=== PATIENT | male | born 1985 | race Caucasian/White ===

== ENCOUNTER 2016-12-17 16:41 | Inpatient (IN) | payer OTHER ==
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
[2016-12-17] MEDS ORDERED: HALOPERIDOL LACT 5 MG/ML INJ ONE (18:23)
[2016-12-17] MEDS ORDERED: LORazepam 2 MG/ML INJ ONE (18:24)
[2016-12-17] MEDS ORDERED: LORazepam 2 MG/ML INJ IM ONE (18:31)
[2016-12-17] MEDS ORDERED: HALOPERIDOL LACT 5 MG/ML INJ IM ONE (18:31)
[2016-12-17 18:57] LABS: % IMMATURE GRANULYOCYTES 0.5 % (0.0-1.1); ABSOLUTE IMMATURE GRANULOCYTES 0.04 10^3/uL (0.00-0.10); ABSOLUTE NRBC COUNT 0.02 10^3/uL (0-0.01); ADD DIFF? NO; ADD MORPH? NO; ADD SCAN? NO; ATYPICAL LYMPHOCYTE FLAG 30 (0-99); FRAGMENT RBC FLAG 0 (0-99); LEFT SHIFT FLG 0 (0-99); LIPEMIA HEMOLYSIS FLAG 90 (0-99); MEAN CELL HEMOGLOBIN 31.6 pg (27.9-34.1); MEAN CELL HEMOGLOBIN CONCENTR. 35.6 g/dL (32.4-36.7); MEAN CELL VOLUME 88.8 fL (81.5-99.8); MEAN PLATELET VOLUME 9.8 fL (8.7-11.7); NRBC-AUTO% 0.2 % (0.0-0.2); PLATELET CLUMPS FLAG 10 (0-99); PLATELET COUNT 282 10^3/uL (150-400); RED BLOOD CELL COUNT 5.07 10^6/uL (4.40-6.38); RED CELL DISTRIBUTION WIDTH 14.1 % (11.5-15.2)
[2016-12-17 19:10] LABS: ANION GAP 19 mEq/L (8-16); CARBON DIOXIDE 18 mEq/l (22-31); CHLORIDE 106 mEq/L (97-110); CREATININE 0.9 mg/dL (0.7-1.3); ETHANOL SERUM < 10 mg/dL (0-10); GLOMERULAR FILTRATION RATE > 60; GLUCOSE 65 mg/dL (70-100); POTASSIUM 3.4 mEq/L (3.5-5.2); SALICYLATE < 1.0 mg/dL (2.0-20.0); SODIUM 143 mEq/L (134-144)
[2016-12-17] MEDS ORDERED: LORazepam 1 MG TAB PO ONE (19:55)
[2016-12-17] MEDS ORDERED: LORazepam 1 MG TAB ONE (20:41)
[2016-12-17] MEDS ORDERED: LORazepam 0.5 MG TAB PO PRN (22:35)
[2016-12-17] MEDS ORDERED: MAG HYDROX/AL HYDROX/SIMETH 30 ML UDCUP PO PRN (22:35)
[2016-12-17] MEDS ORDERED: MAGNESIUM HYDROXIDE 30 ML UDCUP PO PRN (22:35)
[2016-12-18] MEDS: LORazepam 1 MG TAB PO SCH ×2 (16:31→20:13)
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
[2016-12-18] MEDS: ARIPiprazole 5 MG TAB PO SCH (20:13)
[2016-12-18] MEDS: ACETAMINOPHEN 325 MG TAB PO PRN (20:13)
[2016-12-19] MEDS: ACETAMINOPHEN 325 MG TAB PO PRN ×2 (01:03→13:33)
[2016-12-19] MEDS: OLANZapine DISINTEGR 10 MG TAB PO PRN ×2 (01:04→13:33)
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
[2016-12-19] MEDS: LORazepam 1 MG TAB PO SCH ×3 (09:44→22:13)
[2016-12-19] MEDS: ARIPiprazole 5 MG TAB PO SCH ×2 (09:44→22:13)
[2016-12-19] MEDS: NICOTINE POLACRILEX 2 MG GUM B PRN ×3 (13:33→22:40)
--- NOTE | 2016-12-19 15:20 | SOAPPROG ---
SOAP Progress Note Assessment/Plan: Assessment: Plan: 12/19/16 14:00 DAY 2 30' UPDATE/EXAM: Nursing reports pt has remained in behavioral control, slept well, is c/w cares and meds; calmer and with resolving PI as observed/ on direct exam pt presents as mildly anxious, cooperative, conversant; thought pr ocess is very concrete, impoverished a d c/w compromised intellectual functioning to mild MR level; circumscribed IOR and PI residual; responsive to reintegrative support. ASSESSMENT/PLAN: early phase evidence that pt is recompensationg and cooperative in engaging Care Plan/ no change in current meds or management plan Objective: Vital Signs Temp Pulse Resp BP Pulse Ox 36.9 C 81 14 127/74 H 94 12/19/16 05:22 12/19/16 05:22 12/19/16 05:22 12/19/16 05:22 12/19/16 05:22 Microbiology 12/19/16 02:00 Gastrointestinal Tract Panel (PCR) - Final Stool Adenovirus Plesiomonas Shigelloides E.coli Enteropathogenic(Epec) ICD10 Worksheet Patient Problems: Problems Problem Status Onset Acute psychosis Acute
--- NOTE | 2016-12-20 06:41 | SOAPPROG ---
SOAP Progress Note Assessment/Plan: Assessment: Plan: 12/19/16 14:00 DAY 2 30' UPDATE/EXAM: Nursing reports pt has remained in behavioral control, slept well, is c/w cares and meds; calmer and with resolving PI as observed/ on direct exam pt presents as mildly anxious, cooperative, conversant; thought process is very concrete, impoverished as c/w compromised intellectual functioning to mild MR level; circumscribed IOR and PI residual; responsive to reintegrative support. ASSESSMENT/PLAN: early phase evidence that pt is recompensating and cooperative in engaging Care Plan/ no change in current meds or management plan 12/20/16 DAY 3 30' UPDATE/EXAM: Objective: Vital Signs Temp Pulse Resp BP Pulse Ox 36.9 C 72 16 110/64 96 12/20/16 06:00 12/20/16 06:00 12/20/16 06:00 12/20/16 06:00 12/20/16 06:00 Microbiology 12/19/16 02:00 Gastrointestinal Tract Panel (PCR) - Final Stool Adenovirus Plesiomonas Shigelloides E.coli Enteropathogenic(Epec) ICD10 Worksheet Patient Problems: Problems Problem Status Onset Acute psychosis Acute
[2016-12-20] MEDS: NICOTINE POLACRILEX 2 MG GUM B PRN ×2 (08:54→19:53)
[2016-12-20] MEDS: LORazepam 1 MG TAB PO SCH (08:54)
[2016-12-20] MEDS: ARIPiprazole 5 MG TAB PO SCH (08:54)
--- NOTE | 2016-12-20 15:25 | SOAPPROG ---
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 ASSESSMENT/PLAN: early phase evidence that pt is recompensating and cooperative in engaging Care Plan/ no change in current meds or management plan 12/20/16 13:30 DAY ' UPDATE/EXAM: Nursing reports slept 11 hr, observed as drowsy and more time in bed; PI and POS noted on MSE by nursing and CC earlier today/ on direct exam pt is drowsy and in bed; thought process unchanged with residual PI and impoverishment; discussed meds changes a/w decrease of Ativan and increase of Abilify which pt is accepting; also again he gives me permissionm to reach [facility] for expanding data base and explore options at DC ASSESSMENT/PLAN: residual psychotic acuity; probable Ativan-induced sedation/ decrease Ativan to 0.5 mg tid and Vistaril prn; increase Abilify to 10 mg bid; Care plan discussed with Nursing - mobilize OOR and promote socialization Objective: Vital Signs Temp Pulse Resp BP Pulse Ox 36.9 C 72 16 110/64 96 12/20/16 06:00 12/20/16 06:00 12/20/16 06:00 12/20/16 06:00 12/20/16 06:00 Microbiology 12/19/16 02:00 Gastrointestinal Tract Panel (PCR) - Final Stool Adenovirus Plesiomonas Shigelloides E.coli Enteropathogenic(Epec) ICD10 Worksheet Patient Problems: Problems Problem Status Onset Acute psychosis Acute
[2016-12-20] MEDS: LORazepam 0.5 MG TAB PO SCH ×2 (16:37→21:53)
[2016-12-20] MEDS: ARIPiprazole 10 MG TAB PO SCH (21:53)
--- NOTE | 2016-12-21 06:28 | SOAPPROG ---
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 ASSESSMENT/PLAN: early phase evidence that pt is recompensating and cooperative in engaging Care Plan/ no change in current meds or management plan 12/20/16 13:30 DAY UPDATE/EXAM: Nursing reports slept 11 hr, observed as drowsy and more time in bed; PI and POS noted on MSE by nursing and CC earlier today/ on direct exam pt is drowsy and in bed; thought process unchanged with residual PI and impoverishment; discussed meds changes a/w decrease of Ativan and increase of Abilify which pt is accepting; also again he gives me permission to reach [facility] for expanding data base and explore options at DC ASSESSMENT/PLAN: residual psychotic acuity; probable Ativan-induced sedation/ decrease Ativan to 0.5 mg tid and Vistaril prn; increase Abilify to 10 mg bid; Care plan discussed with Nursing - mobilize OOR and promote socialization 12/21/16 DAY UPDATE/EXAM: Objective: Vital Signs Temp Pulse Resp BP Pulse Ox 36.9 C 54 L 18 120/69 94 12/21/16 06:00 12/21/16 06:00 12/21/16 06:00 12/21/16 06:00 12/21/16 06:00 ICD10 Worksheet Patient Problems: Problems Problem Status Onset Acute psychosis Acute
[2016-12-21] MEDS: LORazepam 0.5 MG TAB PO SCH ×4 (09:04→21:11)
[2016-12-21] MEDS: ARIPiprazole 10 MG TAB PO SCH ×2 (09:04→21:11)
--- NOTE | 2016-12-21 11:22 | SOAPPROG ---
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 ASSESSMENT/PLAN: early phase evidence that pt is recompensating and cooperative in engaging Care Plan/ no change in current meds or management plan 12/20/16 13:30 DAY UPDATE/EXAM: Nursing reports slept 11 hr, observed as drowsy and more time in bed; PI and POS noted on MSE by nursing and CC earlier today/ on direct exam pt is drowsy and in bed; thought process unchanged with residual PI and impoverishment; discussed meds changes a/w decrease of Ativan and increase of Abilify which pt is accepting; also again he gives me permission to reach [facility] [place] expanding data base and explore options at [place] ASSESSMENT/PLAN: residual psychotic acuity; probable Ativan-induced sedation/ decrease Ativan to 0.5 mg tid and Vistaril prn; increase Abilify to 10 mg bid; Care plan discussed with Nursing - mobilize OOR and promote socialization 12/21/16 DAY UPDATE/EXAM: Nursing rep orts pt slept 10 hours, less drowsy and OOR into milieu this AM; interacting socially with selective pts and attending to self- care, c/w meds and cares; on direct exam evidences residual persecutory delusions about water but less guarded and less pressured speech; again gives permission for me to speak to mother and generally responsive to reintegrative support during session. ASSESSMENT/PLAN: early phase progress in recompensating/ no change in meds or management plan as discussed in Rounds Objective: Vital Signs Temp Pulse Resp BP Pulse Ox 36.9 C 54 L 18 120/69 94 12/21/16 06:00 12/21/16 06:00 12/21/16 06:00 12/21/16 06:00 12/21/16 06:00 ICD10 Worksheet Patient Problems: Problems Problem Status Onset Acute psychosis Acute
[2016-12-21] MEDS: NICOTINE POLACRILEX 2 MG GUM B PRN (16:13)
[2016-12-21] MEDS: ACETAMINOPHEN 325 MG TAB PO PRN (20:22)
--- NOTE | 2016-12-22 06:31 | SOAPPROG ---
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 ASSESSMENT/PLAN: early phase evidence that pt is recompensating and cooperative in engaging Care Plan/ no change in current meds or management plan 12/20/16 13:30 DAY UPDATE/EXAM: Nursing reports slept 11 hr, observed as drowsy and more time in bed; PI and POS noted on MSE by nursing and CC earlier today/ on direct exam pt is drowsy and in bed; thought process unchanged with residual PI and impoverishment; discussed meds changes a/w decrease of Ativan and increase of Abilify which pt is accepting; also again he gives me permission to reach [facility] for expanding data base and explore options at [place] ASSESSMENT/PLAN: residual psychotic acuity; probable Ativan-induced sedation/ decrease Ativan to 0.5 mg tid and Vistaril prn; increase Abilify to 10 mg bid; Care plan discussed with Nursing - mobilize OOR and promote socialization 12/21/16 DAY UPDATE/EXAM: Nursing reports pt slept 10 hours, less drowsy and OOR into milieu this AM; interacting socially with selective pts and attending to self-care, c/ w meds and cares; on direct exam evidences residual persecutory delusions about water but less guarded and less pressured speech; again gives permission for me to speak to mother and generally responsive to reintegrative support during session. ASSESSMENT/PLAN: early phase progress in recompensating/ no change in meds or management plan as discussed in Rounds 12/22/16 DAY UPDATE/EXAM: Objective: Vital Signs Temp Pulse Resp BP Pulse Ox 36.9 C 54 L 18 120/69 94 12/21/16 06:00 12/21/16 06:00 12/21/16 06:00 12/21/16 06:00 12/21/16 06:00 ICD10 Worksheet Patient Problems: Problems Problem Status Onset Acute psychosis Acute
[2016-12-22] MEDS: LORazepam 0.5 MG TAB PO SCH ×3 (08:10→20:47)
[2016-12-22] MEDS: ARIPiprazole 10 MG TAB PO SCH ×2 (08:11→17:18)
[2016-12-22] MEDS: NICOTINE POLACRILEX 2 MG GUM B PRN ×2 (11:26→19:07)
--- NOTE | 2016-12-22 11:41 | SOAPPROG ---
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 ASSESSMENT/PLAN: early phase evidence that pt is recompensating and cooperative in engaging Care Plan/ no change in current meds or management plan 12/20/16 13:30 DAY ' UPDATE/EXAM: Nursing reports slept 11 hr, observed as drowsy and more time in bed; PI and POS noted on MSE by nursing and CC earlier today/ on direct exam pt is drowsy and in bed; thought process unchanged with residual PI and impoverishment; discussed meds changes a/w decrease of Ativan and increase of Abilify which pt is accepting; also again he gives me permission to reach [facility] for expanding data base and explore options at [place] ASSESSMENT/PLAN: residual psychotic acuity; probable Ativan-induced sedation/ decrease Ativan to 0.5 mg tid and Vistaril prn; increase Abilify to 10 mg bid; Care plan discussed with Nursing - mobilize OOR and promote socialization 12/21/16 DAY UPDATE/EXAM: Nursing reports pt slept 10 hours, less drowsy and OOR into milieu this AM; interacting socially with selective pts and attending to self-care, c/ w meds and cares; on direct exam evidences residual persecutory delusions about water but less guarded and less pressured speech; again gives permission for me to speak to mother and generally responsive to reintegrative support during session. ASSESSMENT/PLAN: early phase progress in recompensating/ no change in meds or management plan as discussed in Rounds 12/22/16 11:30 DAY UPDATE/EXAM: Nursing reorts pt continues to sleep well, c/w cares and meds, gradually more visible in milieu and attending selective groups/ on direct exam pt evidences improving signs a/w less POS and slowed mentation, improving reality-testing capacity, improving capacity for conversant mode; residual manic elements remains as does IOR and PI. INTAKE/MOC: she reports that mood instability with preponderant manic episodes began in childhood and have continued to the present; assessed as disabled at age 18 with disabilities defined as GM epilepsy, mild mental retardation/ learning disabled, and Autistic Spectrum Disorder - no mention of primary Mood Disorder. In recent years and particularly over the last year [facility] has seen psychotic sx emerge including PI, persecutory delusions, AH/VH; psychotic crises leading to this admission is the most acutely psychotic MOC has seen her son. She states she and pt's father want him to return to [place], again live with family, and engage treatment in the community. ASSESSMENT/PLAN: residual manic/psychotic elements on exam which are improving; hx suggests SAD - Bipolar Type a/w other diagnoses as referenced/ no change in current meds or management as d/w Nursing in Rounds Objective: Vital Signs Temp Pulse Resp BP Pulse Ox 36.6 C 60 16 128/80 H 94 12/22/16 06:00 12/22/16 06:00 12/22/16 06:00 12/22/16 06:00 12/22/16 06:00 ICD10 Worksheet Patient Problems: Problems Problem Status Onset Acute psychosis Acute
[2016-12-23] MEDS: NICOTINE POLACRILEX 2 MG GUM B PRN ×2 (08:10→10:58)
[2016-12-23] MEDS: LORazepam 0.5 MG TAB PO SCH ×3 (08:55→20:13)
[2016-12-23] MEDS: ARIPiprazole 10 MG TAB PO SCH ×2 (08:55→17:16)
--- NOTE | 2016-12-23 13:02 | SOAPPROG ---
SOAP Progress Note Assessment/Plan: Assessment: 31yo CM with likely Schizoaffective d/o, bipolar type, also hx mild MR, sz d/o none in 5yr, Autism spectrum d/o 12/23/16 12:53 pt slept 6hr. no acute issues. continues with grandiose and paranoid thoughts but overall more organized in conversation, [place] [facility] [place] On interview, pt talked briefly about leaving [place] for [place] recently, digressed into snowboarding at age 6 and getting snow in his boots and motion sickness unless driving. [place] he could [place]amorano for gold out here, and was hoping to get $20/ day this way, living in [facility]. Then states "I want to go to [place]...I wanted to find land and get [employer] rights, then build a place, and find a dog or a mule to keep me company..." Unable to state how ended up in psychiatric hosp, "maybe because I was praying in the parking lot". Denies med s/e, altho concerned Abilify will give him psychosis, since it's an antipsychotic and he doesn't believe he is psychotic. "that's what I heard". Agreed to continue with treatment as planned, however. Likes prn ativan, although states xanax helped in the past too. MSE: cooperative, engaging, nml speech rate/vol, nml eye contact, mood "pretty good", affect full, thoughts disorganized and not reality-based, but denied AH/ VH or any SI/HI. insight poor, jdgmt impaired. PLAN: cont current meds, on STC. Family may come from [place] to take pt home. Objective: Vital Signs Temp Pulse Resp BP Pulse Ox 36.5 C 71 14 102/66 96 12/23/16 06:20 12/23/16 06:20 12/23/16 06:20 12/23/16 06:20 12/23/16 06:20 - Time Spent With Patient Time Spent With Patient: 25min - Pending Discharge Pending Discharge Within 24 Hours: No Pending Discharge Within 48 Hours: No ICD10 Worksheet Patient Problems: Problems Problem Status Onset Acute psychosis Acute
[2016-12-23] MEDS: ACETAMINOPHEN 325 MG TAB PO PRN (20:13)
[2016-12-24] MEDS: ZOLPIDEM TARTRATE 5 MG TAB PO PRN ×2 (03:19→20:40)
[2016-12-24] MEDS: ARIPiprazole 10 MG TAB PO SCH ×2 (08:22→15:44)
[2016-12-24] MEDS: LORazepam 0.5 MG TAB PO SCH ×3 (08:22→20:40)
[2016-12-24] MEDS: NICOTINE POLACRILEX 2 MG GUM B PRN ×4 (12:59→20:40)
[2016-12-24] MEDS: OLANZapine DISINTEGR 10 MG TAB PO PRN (17:34)
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
[2016-12-25] MEDS: NICOTINE POLACRILEX 2 MG GUM B PRN ×2 (06:03→09:12)
[2016-12-25] MEDS: ALBUTEROL 60 PUFFS/8 GM MDI IH PRN (06:24)
[2016-12-25] MEDS: ARIPiprazole 10 MG TAB PO SCH ×2 (09:10→16:49)
[2016-12-25] MEDS: LORazepam 0.5 MG TAB PO SCH ×3 (09:10→22:08)
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
[2016-12-25] MEDS ORDERED: ARIPiprazole 10 MG TAB PO SCH (17:00)
[2016-12-26] MEDS ORDERED: ARIPiprazole 10 MG TAB PO SCH (09:00)
[2016-12-26] MEDS: LORazepam 0.5 MG TAB PO SCH ×3 (10:08→21:03)
--- NOTE | 2016-12-26 11:51 | SOAPPROG ---
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 ASSESSMENT/PLAN: early phase evidence that pt is recompensating and cooperative in engaging Care Plan/ no change in current meds or management plan 12/20/16 13:30 DAY ' UPDATE/EXAM: Nursing reports slept 11 hr, observed as drowsy and more time in bed; PI and POS noted on MSE by nursing and CC earlier today/ on direct exam pt is drowsy and in bed; thought process unchanged with residual PI and impoverishment; discussed meds changes a/w decrease of Ativan and increase of Abilify which pt is accepting; also again he gives me permission to reach [facility] [place] and explore options at [place] ASSESSMENT/PLAN: residual psychotic acuity; probable Ativan-induced sedation/ decrease Ativan to 0.5 mg tid and Vistaril prn; increase Abilify to 10 mg bid; Care plan discussed with Nursing - mobilize OOR and promote socialization 12/21/16 DAY UPDATE/EXAM: Nursing reports pt slept 10 hours, less drowsy and OOR into milieu this AM; interacting socially with selective pts and attending to self-care, c/ w meds and cares; on direct exam evidences residual persecutory delusions about water but less guarded and less pressured speech; again gives permission for me to speak to mother and generally responsive to reintegrative support during session. ASSESSMENT/PLAN: early phase progress in recompensating/ no change in meds or management plan as discussed in Rounds 12/22/16 11:30 DAY UPDATE/EXAM: Nursing reorts pt continues to sleep well, c/w cares and meds, gradually more visible in milieu and attending selective groups/ on direct exam pt evidences improving signs a/w less POS and slowed mentation, improving reality-testing capacity, improving capacity for conversant mode; residual manic elements remains as does IOR and PI. INTAKE/MOC: she reports that mood instability with preponderant manic episodes began in childhood and have continued to the present; assessed as disabled at age 18 with disabilities defined as GM epilepsy, mild mental retardation/ learning disabled, and Autistic Spectrum Disorder - no mention of primary Mood Disorder. In recent years and particularly over the last year [facility] [place] psychotic sx emerge including PI, persecutory delusions, AH/VH; psychotic crises leading to this admission is the most acutely psychotic MOC has seen her son. She states she and pt's father want him to return to [place], again live with family, and engage treatment in the community. ASSESSMENT/PLAN: residual manic/psychotic elements on exam which are improving; hx suggests SAD - Bipolar Type a/w other diagnoses as referenced/ no change in current meds or management as d/w Nursing in Rounds 12/26/16 11:36 DAY ' UPDATE/EXAM: Nursing reports over past 3 days pt has continued to evidence residual psychotic/manic elements with extremely disjointed thought process at times; has refused several doses of Abilify as he's c/o "restless legs which also feel like lead"; this AM pt states he took an Ativan and Abilify tablet he' d cheeked and saved in the interest of checking out his response to see if his legs still bothered him after he'd agreed to take a depot shot Abillify in speaking with me earlier; on f/u contact pt described the apparent side effect of akathisia he'd felt with previous compliance with Abilify; he agreed to try Cogentin 1 mg bid, continue the Abilify 10 mg bid and hold off on the depot injection of Abilify for 48 hours to assess his tolerance for the Abilify; He also agreed to take a loading trial of Depakote which he now says he's taken remotely which worked "to make me mellow" but was also sedating ASSESSMENT/PLAN: residual psychotic/manic sx but improved partially on Abilify currently dosed at 100 mg bid; akathisia side-effect/ will prescribe Cogentin 1 mg bid and begin Depakote ER 250 mg bid and observe mental status; continue current CP as d/w Nursing in Rounds; monitor meds compliance Objective: Vital Signs Temp Pulse Resp BP Pulse Ox 36.3 C 88 16 131/81 H 97 12/26/16 06:00 12/26/16 11:00 12/26/16 11:00 12/26/16 11:00 12/26/16 11:00 ICD10 Worksheet Patient Problems: Problems Problem Status Onset Acute psychosis Acute
[2016-12-26] MEDS: ARIPiprazole 10 MG TAB PO SCH ×2 (12:15→18:41)
[2016-12-26] MEDS: BENZTROPINE MESYLATE 1 MG TAB PO SCH ×2 (13:47→21:02)
[2016-12-26] MEDS: DIVALPROEX ER 250 MG TAB PO SCH (21:02)
--- NOTE | 2016-12-27 06:32 | SOAPPROG ---
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 ASSESSMENT/PLAN: early phase evidence that pt is recompensating and cooperative in engaging Care Plan/ no change in current meds or management plan 12/20/16 13:30 DAY ' UPDATE/EXAM: Nursing reports slept 11 hr, observed as drowsy and more time in bed; PI and POS noted on MSE by nursing and CC earlier today/ on direct exam pt is drowsy and in bed; thought process unchanged with residual PI and impoverishment; discussed meds changes a/w decrease of Ativan and increase of Abilify which pt is accepting; also again he gives me permission to reach [facility] for expanding data base and explore options at [place] ASSESSMENT/PLAN: residual psychotic acuity; probable Ativan-induced sedation/ decrease Ativan to 0.5 mg tid and Vistaril prn; increase Abilify to 10 mg bid; Care plan discussed with Nursing - mobilize OOR and promote socialization 12/21/16 DAY UPDATE/EXAM: Nursing reports pt slept 10 hours, less drowsy and OOR into milieu this AM; interacting socially with selective pts and attending to self-care, c/ w meds and cares; on direct exam evidences residual persecutory delusions about water but less guarded and less pressured speech; again gives permission for me to speak to mother and generally responsive to reintegrative support during session. ASSESSMENT/PLAN: early phase progress in recompensating/ no change in meds or management plan as discussed in Rounds 12/22/16 11:30 DAY UPDATE/EXAM: Nursing reorts pt continues to sleep well, c/w cares and meds, gradually more visible in milieu and attending selective groups/ on direct exam pt evidences improving signs a/w less POS and slowed mentation, improving reality-testing capacity, improving capacity for conversant mode; residual manic elements remains as does IOR and PI. INTAKE/MOC: she reports that mood instability with preponderant manic episodes began in childhood and have continued to the present; assessed as disabled at age 18 with disabilities defined as GM epilepsy, mild mental retardation/ learning disabled, and Autistic Spectrum Disorder - no mention of primary Mood Disorder. In recent years and particularly over the last year [facility] has seen psychotic sx emerge including PI, persecutory delusions, AH/VH; psychotic crises leading to this admission is the most acutely psychotic MOC has seen her son. She states she and pt's father want him to return to [place], again live with family, and engage treatment in the community. ASSESSMENT/PLAN: residual manic/psychotic elements on exam which are improving; hx suggests SAD - Bipolar Type a/w other diagnoses as referenced/ no change in current meds or management as d/w Nursing in Rounds 12/26/16 11:36 DAY ' UPDATE/EXAM: Nursing reports over past 3 days pt has continued to evidence residual psychotic/manic elements with extremely disjointed thought process at times; has refused several doses of Abilify as he's c/o "restless legs which also feel like lead"; this AM pt states he took an Ativan and Abilify tablet he' d cheeked and saved in the interest of checking out his response to see if his legs still bothered him after he'd agreed to take a depot shot Abillify in speaking with me earlier; on f/u contact pt described the apparent side effect of akathisia he'd felt with previous compliance with Abilify; he agreed to try Cogentin 1 mg bid, continue the Abilify 10 mg bid and hold off on the depot injection of Abilify for 48 hours to assess his tolerance for the Abilify; He also agreed to take a loading trial of Depakote which he now says he's taken remotely which worked "to make me mellow" but was also sedating. ASSESSMENT/PLAN: residual psychotic/manic sx but improved partially on Abilify currently dosed at 10 mg bid; akathisia side-effect/ will prescribe Cogentin 1 mg bid and begin Depakote ER 250 mg bid and observe mental status; continue current CP as d/w Nursing in Rounds; monitor meds compliance 12/27/16 DAY ' UPDATE/EXAM: Objective: Vital Signs Temp Pulse Resp BP Pulse Ox 36.3 C 96 16 125/85 H 97 12/27/16 05:54 12/27/16 05:54 12/27/16 05:54 12/27/16 05:54 12/27/16 05:54 ICD10 Worksheet Patient Problems: Problems Problem Status Onset Acute psychosis Acute
[2016-12-27] MEDS: OLANZapine DISINTEGR 10 MG TAB PO PRN ×2 (06:37→13:22)
[2016-12-27] MEDS: DIVALPROEX ER 250 MG TAB PO SCH ×2 (08:19→21:25)
[2016-12-27] MEDS: BENZTROPINE MESYLATE 1 MG TAB PO SCH ×2 (08:20→21:25)
[2016-12-27] MEDS: NICOTINE POLACRILEX 2 MG GUM B PRN ×4 (08:20→23:04)
[2016-12-27] MEDS: LORazepam 0.5 MG TAB PO SCH ×4 (08:41→21:59)
[2016-12-27] MEDS: ARIPiprazole 10 MG TAB PO SCH ×2 (11:09→13:23)
[2016-12-27] MEDS ORDERED: RISPERIDONE 1 MG ODT TAB ONE (14:09)
--- NOTE | 2016-12-27 14:33 | SOAPPROG ---
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 ASSESSMENT/PLAN: early phase evidence that pt is recompensating and cooperative in engaging Care Plan/ no change in current meds or management plan 12/20/16 13:30 DAY ' UPDATE/EXAM: Nursing reports slept 11 hr, observed as drowsy and more time in bed; PI and POS noted on MSE by nursing and CC earlier today/ on direct exam pt is drowsy and in bed; thought process unchanged with residual PI and impoverishment; discussed meds changes a/w decrease of Ativan and increase of Abilify which pt is accepting; also again he gives me permission to reach [facility] [place] and explore options at [place] ASSESSMENT/PLAN: residual psychotic acuity; probable Ativan-induced sedation/ decrease Ativan to 0.5 mg tid and Vistaril prn; increase Abilify to 10 mg bid; Care plan discussed with Nursing - mobilize OOR and promote socialization 12/21/16 DAY UPDATE/EXAM: Nursing reports pt slept 10 hours, less drowsy and OOR into milieu this AM; interacting socially with selective pts and attending to self-care, c/ w meds and cares; on direct exam evidences residual persecutory delusions about water but less guarded and less pressured speech; again gives permission for me to speak to mother and generally responsive to reintegrative support during session. ASSESSMENT/PLAN: early phase progress in recompensating/ no change in meds or management plan as discussed in Rounds 12/22/16 11:30 DAY UPDATE/EXAM: Nursing reorts pt continues to sleep well, c/w cares and meds, gradually more visible in milieu and attending selective groups/ on direct exam pt evidences improving signs a/w less POS and slowed mentation, improving reality-testing capacity, improving capacity for conversant mode; residual manic elements remains as does IOR and PI. INTAKE/MOC: she reports that mood instability with preponderant manic episodes began in childhood and have continued to the present; assessed as disabled at age 18 with disabilities defined as GM epilepsy, mild mental retardation/ learning disabled, and Autistic Spectrum Disorder - no mention of primary Mood Disorder. In recent years and particularly over the last year [facility] [place] seen psychotic sx emerge including PI, persecutory delusions, AH/VH; psychotic crises leading to this admission is the most acutely psychotic MOC has seen her son. She states she and pt's father want him to return to [place], again live with family, and engage treatment in the community. ASSESSMENT/PLAN: residual manic/psychotic elements on exam which are improving; hx suggests SAD - Bipolar Type a/w other diagnoses as referenced/ no change in current meds or management as d/w Nursing in Rounds 12/26/16 11:36 DAY ' UPDATE/EXAM: Nursing reports over past 3 days pt has continued to evidence residual psychotic/manic elements with extremely disjointed thought process at times; has refused several doses of Abilify as he's c/o "restless legs which also feel like lead"; this AM pt states he took an Ativan and Abilify tablet he' d cheeked and saved in the interest of checking out his response to see if his legs still bothered him after he'd agreed to take a depot shot Abillify in speaking with me earlier; on f/u contact pt described the apparent side effect of akathisia he'd felt with previous compliance with Abilify; he agreed to try Cogentin 1 mg bid, continue the Abilify 10 mg bid and hold off on the depot injection of Abilify for 48 hours to assess his tolerance for the Abilify; He also agreed to take a loading trial of Depakote which he now says he's taken remotely which worked "to make me mellow" but was also sedating. ASSESSMENT/PLAN: residual psychotic/manic sx but improved partially on Abilify currently dosed at 10 mg bid; akathisia side-effect/ will prescribe Cogentin 1 mg bid and begin Depakote ER 250 mg bid and observe mental status; continue current CP as d/w Nursing in Rounds; monitor meds compliance 12/27/16 14:20 DAY ' UPDATE/EXAM: Nursing reports pt has been more regressed in last 24 hours, intermittently agitated, cheeking meds; continuing to complain about Abilify causing LE side-effects; this aM he has tried to elope X 1 and ripped a railing off a bannister on the unit but clamed with limits applied/ on direct exam pt engaged and cooperated after limits again applied by me in session about need for control and compliance with cares and meds; he is unable to understand the trial of Abillify and Cogentin so I decided to Dc Abilify and begin Risperdal M TABS 3 mg bid which pt agrees to take with first dosing while still in my office ; other meds unchanged; pt + about speaker phone meeting with [facility] tomorrow. ASSESSMENT/PLAN: increased agitation, regressed behaviors, residual psychotic/ manic acuity a/w noncompliance with meds/ begin trial of Risperdal M tabs 3 mg bid, continue other meds as ordered, care plan strategies d/w Nursing post session Objective: Vital Signs Temp Pulse Resp BP Pulse Ox 36.3 C 96 16 125/85 H 97 12/27/16 05:54 12/27/16 05:54 12/27/16 05:54 12/27/16 05:54 12/27/16 05:54 ICD10 Worksheet Patient Problems: Problems Problem Status Onset Acute psychosis Acute
[2016-12-27] MEDS: NICOTINE 21 MG/24 HR PATCH TD SCH (14:44)
[2016-12-27] MEDS: RISPERIDONE 1 MG ODT TAB SL SCH ×2 (14:46→21:25)
[2016-12-27] MEDS: ALBUTEROL 60 PUFFS/8 GM MDI IH PRN (18:23)
[2016-12-28] MEDS: NICOTINE POLACRILEX 2 MG GUM B PRN ×3 (00:15→22:35)
[2016-12-28] MEDS: ZOLPIDEM TARTRATE 5 MG TAB PO PRN ×2 (01:27→22:42)
[2016-12-28] MEDS: hydrOXYzine HCL 50 MG TAB PO PRN (06:39)
[2016-12-28] MEDS: RISPERIDONE 1 MG ODT TAB SL SCH ×2 (08:19→20:33)
[2016-12-28] MEDS: DIVALPROEX ER 250 MG TAB PO SCH ×2 (08:20→20:33)
[2016-12-28] MEDS: LORazepam 0.5 MG TAB PO SCH ×3 (08:21→20:33)
[2016-12-28] MEDS: BENZTROPINE MESYLATE 1 MG TAB PO SCH ×2 (08:22→20:33)
[2016-12-28] MEDS: NICOTINE 21 MG/24 HR PATCH TD SCH (08:23)
[2016-12-28] MEDS: OLANZapine DISINTEGR 10 MG TAB PO PRN ×3 (08:31→20:37)
--- NOTE | 2016-12-28 08:52 | SOAPPROG ---
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 ASSESSMENT/PLAN: early phase evidence that pt is recompensating and cooperative in engaging Care Plan/ no change in current meds or management plan 12/20/16 13:30 DAY ' UPDATE/EXAM: Nursing reports slept 11 hr, observed as drowsy and more time in bed; PI and POS noted on MSE by nursing and CC earlier today/ on direct exam pt is drowsy and in bed; thought process unchanged with residual PI and impoverishment; discussed meds changes a/w decrease of Ativan and increase of Abilify which pt is accepting; also again he gives me permission to reach [facility] [place] and explore options at [place] ASSESSMENT/PLAN: residual psychotic acuity; probable Ativan-induced sedation/ decrease Ativan to 0.5 mg tid and Vistaril prn; increase Abilify to 10 mg bid; Care plan discussed with Nursing - mobilize OOR and promote socialization 12/21/16 DAY UPDATE/EXAM: Nursing reports pt slept 10 hours, less drowsy and OOR into milieu this AM; interacting socially with selective pts and attending to self-care, c/ w meds and cares; on direct exam evidences residual persecutory delusions about water but less guarded and less pressured speech; again gives permission for me to speak to mother and generally responsive to reintegrative support during session. ASSESSMENT/PLAN: early phase progress in recompensating/ no change in meds or management plan as discussed in Rounds 12/22/16 11:30 DAY UPDATE/EXAM: Nursing reorts pt continues to sleep well, c/w cares and meds, gradually more visible in milieu and attending selective groups/ on direct exam pt evidences improving signs a/w less POS and slowed mentation, improving reality-testing capacity, improving capacity for conversant mode; residual manic elements remains as does IOR and PI. INTAKE/MOC: she reports that mood instability with preponderant manic episodes began in childhood and have continued to the present; assessed as disabled at age 18 with disabilities defined as GM epilepsy, mild mental retardation/ learning disabled, and Autistic Spectrum Disorder - no mention of primary Mood Disorder. In recent years and particularly over the last year [facility] [place] seen psychotic sx emerge including PI, persecutory delusions, AH/VH; psychotic crises leading to this admission is the most acutely psychotic MOC has seen her son. She states she and pt's father want him to return to [place], again live with family, and engage treatment in the community. ASSESSMENT/PLAN: residual manic/psychotic elements on exam which are improving; hx suggests SAD - Bipolar Type a/w other diagnoses as referenced/ no change in current meds or management as d/w Nursing in Rounds 12/26/16 11:36 DAY ' UPDATE/EXAM: Nursing reports over past 3 days pt has continued to evidence residual psychotic/manic elements with extremely disjointed thought process at times; has refused several doses of Abilify as he's c/o "restless legs which also feel like lead"; this AM pt states he took an Ativan and Abilify tablet he' d cheeked and saved in the interest of checking out his response to see if his legs still bothered him after he'd agreed to take a depot shot Abillify in speaking with me earlier; on f/u contact pt described the apparent side effect of akathisia he'd felt with previous compliance with Abilify; he agreed to try Cogentin 1 mg bid, continue the Abilify 10 mg bid and hold off on the depot injection of Abilify for 48 hours to assess his tolerance for the Abilify; He also agreed to take a loading trial of Depakote which he now says he's taken remotely which worked "to make me mellow" but was also sedating. ASSESSMENT/PLAN: residual psychotic/manic sx but improved partially on Abilify currently dosed at 10 mg bid; akathisia side-effect/ will prescribe Cogentin 1 mg bid and begin Depakote ER 250 mg bid and observe mental status; continue current CP as d/w Nursing in Rounds; monitor meds compliance 12/27/16 14:20 DAY UPDATE/EXAM: Nursing reports pt has been more regressed in last 24 hours, intermittently agitated, cheeking meds; continuing to complain about Abilify causing LE side-effects; this aM he has tried to elope X 1 and ripped a railing off a bannister on the unit but clamed with limits applied/ on direct exam pt engaged and cooperated after limits again applied by me in session about need for control and compliance with cares and meds; he is unable to understand the trial of Abillify and Cogentin so I decided to Dc Abilify and begin Risperdal M TABS 3 mg bid which pt agrees to take with first dosing while still in my office ; other meds unchanged; pt + about speaker phone meeting with [facility] tomorrow. ASSESSMENT/PLAN: increased agitation, regressed behaviors, residual psychotic/ manic acuity a/w noncompliance with meds/ begin trial of Risperdal M tabs 3 mg bid, continue other meds as ordered, care plan strategies d/w Nursing post session 12/28/16 DAY UPDATE/EXAM: Objective: Vital Signs Temp Pulse Resp BP Pulse Ox 36.3 C 102 H 15 129/90 H 97 12/28/16 06:00 12/28/16 06:00 12/28/16 06:00 12/28/16 06:00 12/28/16 06:00 ICD10 Worksheet Patient Problems: Problems Problem Status Onset Acute psychosis Acute
[2016-12-29] MEDS: LORazepam 0.5 MG TAB PO SCH ×3 (07:59→21:24)
[2016-12-29] MEDS: NICOTINE 21 MG/24 HR PATCH TD SCH (07:59)
[2016-12-29] MEDS: RISPERIDONE 1 MG ODT TAB SL SCH ×2 (07:59→21:24)
[2016-12-29] MEDS: DIVALPROEX ER 250 MG TAB PO SCH ×2 (08:00→21:24)
[2016-12-29] MEDS: BENZTROPINE MESYLATE 1 MG TAB PO SCH ×2 (08:00→21:24)
--- NOTE | 2016-12-29 08:11 | SOAPPROG ---
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 ASSESSMENT/PLAN: early phase evidence that pt is recompensating and cooperative in engaging Care Plan/ no change in current meds or management plan 12/20/16 13:30 DAY ' UPDATE/EXAM: Nursing reports slept 11 hr, observed as drowsy and more time in bed; PI and POS noted on MSE by nursing and CC earlier today/ on direct exam pt is drowsy and in bed; thought process unchanged with residual PI and impoverishment; discussed meds changes a/w decrease of Ativan and increase of Abilify which pt is accepting; also again he gives me permission to reach [facility] for expanding data base and explore options at [place] ASSESSMENT/PLAN: residual psychotic acuity; probable Ativan-induced sedation/ decrease Ativan to 0.5 mg tid and Vistaril prn; increase Abilify to 10 mg bid; Care plan discussed with Nursing - mobilize OOR and promote socialization 12/21/16 DAY UPDATE/EXAM: Nursing reports pt slept 10 hours, less drowsy and OOR into milieu this AM; interacting socially with selective pts and attending to self-care, c/ w meds and cares; on direct exam evidences residual persecutory delusions about water but less guarded and less pressured speech; again gives permission for me to speak to mother and generally responsive to reintegrative support during session. ASSESSMENT/PLAN: early phase progress in recompensating/ no change in meds or management plan as discussed in Rounds 12/22/16 11:30 DAY UPDATE/EXAM: Nursing reorts pt continues to sleep well, c/w cares and meds, gradually more visible in milieu and attending selective groups/ on direct exam pt evidences improving signs a/w less POS and slowed mentation, improving reality-testing capacity, improving capacity for conversant mode; residual manic elements remains as does IOR and PI. INTAKE/MOC: she reports that mood instability with preponderant manic episodes began in childhood and have continued to the present; assessed as disabled at age 18 with disabilities defined as GM epilepsy, mild mental retardation/ learning disabled, and Autistic Spectrum Disorder - no mention of primary Mood Disorder. In recent years and particularly over the last year [facility] has seen psychotic sx emerge including PI, persecutory delusions, AH/VH; psychotic crises leading to this admission is the most acutely psychotic MOC has seen her son. She states she and pt's father want him to return to [place], again live with family, and engage treatment in the community. ASSESSMENT/PLAN: residual manic/psychotic elements on exam which are improving; hx suggests SAD - Bipolar Type a/w other diagnoses as referenced/ no change in current meds or management as d/w Nursing in Rounds 12/26/16 11:36 DAY ' UPDATE/EXAM: Nursing reports over past 3 days pt has continued to evidence residual psychotic/manic elements with extremely disjointed thought process at times; has refused several doses of Abilify as he's c/o "restless legs which also feel like lead"; this AM pt states he took an Ativan and Abilify tablet he' d cheeked and saved in the interest of checking out his response to see if his legs still bothered him after he'd agreed to take a depot shot Abillify in speaking with me earlier; on f/u contact pt described the apparent side effect of akathisia he'd felt with previous compliance with Abilify; he agreed to try Cogentin 1 mg bid, continue the Abilify 10 mg bid and hold off on the depot injection of Abilify for 48 hours to assess his tolerance for the Abilify; He also agreed to take a loading trial of Depakote which he now says he's taken remotely which worked "to make me mellow" but was also sedating. ASSESSMENT/PLAN: residual psychotic/manic sx but improved partially on Abilify currently dosed at 10 mg bid; akathisia side-effect/ will prescribe Cogentin 1 mg bid and begin Depakote ER 250 mg bid and observe mental status; continue current CP as d/w Nursing in Rounds; monitor meds compliance 12/27/16 14:20 DAY ' UPDATE/EXAM: Nursing reports pt has been more regressed in last 24 hours, intermittently agitated, cheeking meds; continuing to complain about Abilify causing LE side-effects; this aM he has tried to elope X 1 and ripped a railing off a bannister on the unit but clamed with limits applied/ on direct exam pt engaged and cooperated after limits again applied by me in session about need for control and compliance with cares and meds; he is unable to understand the trial of Abillify and Cogentin so I decided to Dc Abilify and begin Risperdal M TABS 3 mg bid which pt agrees to take with first dosing while still in my office ; other meds unchanged; pt + about speaker phone meeting with [facility] tomorrow. ASSESSMENT/PLAN: increased agitation, regressed behaviors, residual psychotic/ manic acuity a/w noncompliance with meds/ begin trial of Risperdal M tabs 3 mg bid, continue other meds as ordered, care plan strategies d/w Nursing post session 12/28/16 DAY ' UPDATE/EXAM: Nursing reports pt slept well, obsevably calmer and slightly more organized in thought process; is c/w new regimen a/w Risperdal M tabs 3 mg bid/ on direct exam pt soes present as calmer, with more integrated thought process; still expresses odd ideation which reflects borderline intelligence, includes paranoid elements, is tangential and distractible; is more accepting of DC back to family home in [place]; did well in speaker phone contact with [facility] about parents driving him back to [place] sometime next [place] on sufficient progress. Mother expressed need for pt to engage in psychiatric treatment in the co mmunity to which pt agreed. ASEsSESSMENT/PLAN: less regressed behaviorally andless psycotic residual, more affective stability on exam today/ no change in meds and management plan as d/w Nursing in Rounds Objective: Vital Signs Temp Pulse Resp BP Pulse Ox 36.7 C 88 15 112/66 93 12/29/16 06:23 12/29/16 06:23 12/29/16 06:23 12/29/16 06:23 12/29/16 06:23 ICD10 Worksheet Patient Problems: Problems Problem Status Onset Acute psychosis Acute
--- NOTE | 2016-12-29 08:12 | SOAPPROG ---
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 ASSESSMENT/PLAN: early phase evidence that pt is recompensating and cooperative in engaging Care Plan/ no change in current meds or management plan 12/20/16 13:30 DAY ' UPDATE/EXAM: Nursing reports slept 11 hr, observed as drowsy and more time in bed; PI and POS noted on MSE by nursing and CC earlier today/ on direct exam pt is drowsy and in bed; thought process unchanged with residual PI and impoverishment; discussed meds changes a/w decrease of Ativan and increase of Abilify which pt is accepting; also again he gives me permission to reach [facility] for expanding data base and explore options at [place] ASSESSMENT/PLAN: residual psychotic acuity; probable Ativan-induced sedation/ decrease Ativan to 0.5 mg tid and Vistaril prn; increase Abilify to 10 mg bid; Care plan discussed with Nursing - mobilize OOR and promote socialization 12/21/16 DAY UPDATE/EXAM: Nursing reports pt slept 10 hours, less drowsy and OOR into milieu this AM; interacting socially with selective pts and attending to self-care, c/ w meds and cares; on direct exam evidences residual persecutory delusions about water but less guarded and less pressured speech; again gives permission for me to speak to mother and generally responsive to reintegrative support during session. ASSESSMENT/PLAN: early phase progress in recompensating/ no change in meds or management plan as discussed in Rounds 12/22/16 11:30 DAY UPDATE/EXAM: Nursing reorts pt continues to sleep well, c/w cares and meds, gradually more visible in milieu and attending selective groups/ on direct exam pt evidences improving signs a/w less POS and slowed mentation, improving reality-testing capacity, improving capacity for conversant mode; residual manic elements remains as does IOR and PI. INTAKE/MOC: she reports that mood instability with preponderant manic episodes began in childhood and have continued to the present; assessed as disabled at age 18 with disabilities defined as GM epilepsy, mild mental retardation/ learning disabled, and Autistic Spectrum Disorder - no mention of primary Mood Disorder. In recent years and particularly over the last year [facility] has seen psychotic sx emerge including PI, persecutory delusions, AH/VH; psychotic crises leading to this admission is the most acutely psychotic MOC has seen her son. She states she and pt's father want him to return to [place], again live with family, and engage treatment in the community. ASSESSMENT/PLAN: residual manic/psychotic elements on exam which are improving; hx suggests SAD - Bipolar Type a/w other diagnoses as referenced/ no change in current meds or management as d/w Nursing in Rounds 12/26/16 11:36 DAY ' UPDATE/EXAM: Nursing reports over past 3 days pt has continued to evidence residual psychotic/manic elements with extremely disjointed thought process at times; has refused several doses of Abilify as he's c/o "restless legs which also feel like lead"; this AM pt states he took an Ativan and Abilify tablet he' d cheeked and saved in the interest of checking out his response to see if his legs still bothered him after he'd agreed to take a depot shot Abillify in speaking with me earlier; on f/u contact pt described the apparent side effect of akathisia he'd felt with previous compliance with Abilify; he agreed to try Cogentin 1 mg bid, continue the Abilify 10 mg bid and hold off on the depot injection of Abilify for 48 hours to assess his tolerance for the Abilify; He also agreed to take a loading trial of Depakote which he now says he's taken remotely which worked "to make me mellow" but was also sedating. ASSESSMENT/PLAN: residual psychotic/manic sx but improved partially on Abilify currently dosed at 10 mg bid; akathisia side-effect/ will prescribe Cogentin 1 mg bid and begin Depakote ER 250 mg bid and observe mental status; continue current CP as d/w Nursing in Rounds; monitor meds compliance 12/27/16 14:20 DAY UPDATE/EXAM: Nursing reports pt has been more regressed in last 24 hours, intermittently agitated, cheeking meds; continuing to complain about Abilify causing LE side-effects; this aM he has tried to elope X 1 and ripped a railing off a bannister on the unit but clamed with limits applied/ on direct exam pt engaged and cooperated after limits again applied by me in session about need for control and compliance with cares and meds; he is unable to understand the trial of Abillify and Cogentin so I decided to Dc Abilify and begin Risperdal M TABS 3 mg bid which pt agrees to take with first dosing while still in my office ; other meds unchanged; pt + about speaker phone meeting with [facility] tomorrow. ASSESSMENT/PLAN: increased agitation, regressed behaviors, residual psychotic/ manic acuity a/w noncompliance with meds/ begin trial of Risperdal M tabs 3 mg bid, continue other meds as ordered, care plan strategies d/w Nursing post session 12/28/16 DAY UPDATE/EXAM: Nursing reports pt slept well, obsevably calmer and slightly more organized in thought process; is c/w new regimen a/w Risperdal M tabs 3 mg bid/ on direct exam pt soes present as calmer, with more integrated thought process; still expresses odd ideation which reflects borderline intelligence, includes paranoid elements, is tangential and distractible; is more accepting of DC back to family home in [place]; did well in speaker phone contact with [facility] about parents driving him back to [place] sometime next mary lou [facility]cost on sufficient progress. Mother expressed need for pt to engage in psychiatric treatment in the co [place]munity to which pt agreed. ASSESSMENT/PLAN: less regressed behaviorally andless psycotic residual, more affective stability on exam today/ no change in meds and management plan as d/w Nursing in Rounds 12/29/16 DAY UPDATE/EXAM: Objective: Vital Signs Temp Pulse Resp BP Pulse Ox 36.7 C 88 15 112/66 93 12/29/16 06:23 12/29/16 06:23 12/29/16 06:23 12/29/16 06:23 12/29/16 06:23 ICD10 Worksheet Patient Problems: Problems Problem Status Onset Acute psychosis Acute
[2016-12-29] MEDS: NICOTINE POLACRILEX 2 MG GUM B PRN ×2 (08:41→23:16)
[2016-12-29] MEDS: OLANZapine DISINTEGR 10 MG TAB PO PRN ×2 (08:47→14:38)
[2016-12-29] MEDS: hydrOXYzine HCL 50 MG TAB PO PRN (12:47)
--- NOTE | 2016-12-29 12:49 | SOAPPROG ---
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 ASSESSMENT/PLAN: early phase evidence that pt is recompensating and cooperative in engaging Care Plan/ no change in current meds or management plan 12/20/16 13:30 DAY ' UPDATE/EXAM: Nursing reports slept 11 hr, observed as drowsy and more time in bed; PI and POS noted on MSE by nursing and CC earlier today/ on direct exam pt is drowsy and in bed; thought process unchanged with residual PI and impoverishment; discussed meds changes a/w decrease of Ativan and increase of Abilify which pt is accepting; also again he gives me permission to reach [facility] for expanding data base and explore options at [place] ASSESSMENT/PLAN: residual psychotic acuity; probable Ativan-induced sedation/ decrease Ativan to 0.5 mg tid and Vistaril prn; increase Abilify to 10 mg bid; Care plan discussed with Nursing - mobilize OOR and promote socialization 12/21/16 DAY UPDATE/EXAM: Nursing reports pt slept 10 hours, less drowsy and OOR into milieu this AM; interacting socially with selective pts and attending to self-care, c/ w meds and cares; on direct exam evidences residual persecutory delusions about water but less guarded and less pressured speech; again gives permission for me to speak to mother and generally responsive to reintegrative support during session. ASSESSMENT/PLAN: early phase progress in recompensating/ no change in meds or management plan as discussed in Rounds 12/22/16 11:30 DAY UPDATE/EXAM: Nursing reorts pt continues to sleep well, c/w cares and meds, gradually more visible in milieu and attending selective groups/ on direct exam pt evidences improving signs a/w less POS and slowed mentation, improving reality-testing capacity, improving capacity for conversant mode; residual manic elements remains as does IOR and PI. INTAKE/MOC: she reports that mood instability with preponderant manic episodes began in childhood and have continued to the present; assessed as disabled at age 18 with disabilities defined as GM epilepsy, mild mental retardation/ learning disabled, and Autistic Spectrum Disorder - no mention of primary Mood Disorder. In recent years and particularly over the last year [facility] has seen psychotic sx emerge including PI, persecutory delusions, AH/VH; psychotic crises leading to this admission is the most acutely psychotic MOC has seen her son. She states she and pt's father want him to return to [place], again live with family, and engage treatment in the community. ASSESSMENT/PLAN: residual manic/psychotic elements on exam which are improving; hx suggests SAD - Bipolar Type a/w other diagnoses as referenced/ no change in current meds or management as d/w Nursing in Rounds 12/26/16 11:36 DAY ' UPDATE/EXAM: Nursing reports over past 3 days pt has continued to evidence residual psychotic/manic elements with extremely disjointed thought process at times; has refused several doses of Abilify as he's c/o "restless legs which also feel like lead"; this AM pt states he took an Ativan and Abilify tablet he' d cheeked and saved in the interest of checking out his response to see if his legs still bothered him after he'd agreed to take a depot shot Abillify in speaking with me earlier; on f/u contact pt described the apparent side effect of akathisia he'd felt with previous compliance with Abilify; he agreed to try Cogentin 1 mg bid, continue the Abilify 10 mg bid and hold off on the depot injection of Abilify for 48 hours to assess his tolerance for the Abilify; He also agreed to take a loading trial of Depakote which he now says he's taken remotely which worked "to make me mellow" but was also sedating. ASSESSMENT/PLAN: residual psychotic/manic sx but improved partially on Abilify currently dosed at 10 mg bid; akathisia side-effect/ will prescribe Cogentin 1 mg bid and begin Depakote ER 250 mg bid and observe mental status; continue current CP as d/w Nursing in Rounds; monitor meds compliance 12/27/16 14:20 DAY UPDATE/EXAM: Nursing reports pt has been more regressed in last 24 hours, intermittently agitated, cheeking meds; continuing to complain about Abilify causing LE side-effects; this aM he has tried to elope X 1 and ripped a railing off a bannister on the unit but clamed with limits applied/ on direct exam pt engaged and cooperated after limits again applied by me in session about need for control and compliance with cares and meds; he is unable to understand the trial of Abillify and Cogentin so I decided to Dc Abilify and begin Risperdal M TABS 3 mg bid which pt agrees to take with first dosing while still in my office ; other meds unchanged; pt + about speaker phone meeting with [facility] tomorrow. ASSESSMENT/PLAN: increased agitation, regressed behaviors, residual psychotic/ manic acuity a/w noncompliance with meds/ begin trial of Risperdal M tabs 3 mg bid, continue other meds as ordered, care plan strategies d/w Nursing post session 12/28/16 DAY UPDATE/EXAM: Nursing reports pt slept well, obsevably calmer and slightly more organized in thought process; is c/w new regimen a/w Risperdal M tabs 3 mg bid/ on direct exam pt soes present as calmer, with more integrated thought process; still expresses odd ideation which reflects borderline intelligence, includes paranoid elements, is tangential and distractible; is more accepting of DC back to family home in [place]; did well in speaker phone contact with [facility] about parents driving him back to [place] sometime next mary lou [facility]cost on sufficient progress. Mother expressed need for pt to engage in psychiatric treatment in the co [place]munity to which pt agreed. ASSESSMENT/PLAN: less regressed behaviorally andless psycotic residual, more affective stability on exam today/ no change in meds and management plan as d/w Nursing in Rounds 12/29/16 11:45 DAY UPDATE/EXAM: Nursing reports pt continues to recompensate - slept well, more organized thought process, c/w cares and meds, improving social ego functions/ on direct exam is calm, cooperative, conversant; very concrete with bizarre ideation which reflects compromised IQ and some residual psychosis; mood mildly elevated ASSESSMENT/PLAN: descriptive improvement continues/ no change in meds but will increase Depakote in AM; contact with mother pending to set timetable for dC next week contingent on continued stabilization Objective: Vital Signs Temp Pulse Resp BP Pulse Ox 36.7 C 88 15 112/66 93 12/29/16 06:23 12/29/16 06:23 12/29/16 06:23 12/29/16 06:23 12/29/16 06:23 ICD10 Worksheet Patient Problems: Problems Problem Status Onset Acute psychosis Acute
[2016-12-29] MEDS: ZOLPIDEM TARTRATE 5 MG TAB PO PRN (23:17)
[2016-12-30] MEDS: OLANZapine DISINTEGR 10 MG TAB PO PRN ×3 (03:53→17:19)
--- NOTE | 2016-12-30 06:53 | SOAPPROG ---
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 ASSESSMENT/PLAN: early phase evidence that pt is recompensating and cooperative in engaging Care Plan/ no change in current meds or management plan 12/20/16 13:30 DAY ' UPDATE/EXAM: Nursing reports slept 11 hr, observed as drowsy and more time in bed; PI and POS noted on MSE by nursing and CC earlier today/ on direct exam pt is drowsy and in bed; thought process unchanged with residual PI and impoverishment; discussed meds changes a/w decrease of Ativan and increase of Abilify which pt is accepting; also again he gives me permission to reach [facility] for expanding data base and explore options at [place] ASSESSMENT/PLAN: residual psychotic acuity; probable Ativan-induced sedation/ decrease Ativan to 0.5 mg tid and Vistaril prn; increase Abilify to 10 mg bid; Care plan discussed with Nursing - mobilize OOR and promote socialization 12/21/16 DAY UPDATE/EXAM: Nursing reports pt slept 10 hours, less drowsy and OOR into milieu this AM; interacting socially with selective pts and attending to self-care, c/ w meds and cares; on direct exam evidences residual persecutory delusions about water but less guarded and less pressured speech; again gives permission for me to speak to mother and generally responsive to reintegrative support during session. ASSESSMENT/PLAN: early phase progress in recompensating/ no change in meds or management plan as discussed in Rounds 12/22/16 11:30 DAY UPDATE/EXAM: Nursing reorts pt continues to sleep well, c/w cares and meds, gradually more visible in milieu and attending selective groups/ on direct exam pt evidences improving signs a/w less POS and slowed mentation, improving reality-testing capacity, improving capacity for conversant mode; residual manic elements remains as does IOR and PI. INTAKE/MOC: she reports that mood instability with preponderant manic episodes began in childhood and have continued to the present; assessed as disabled at age 18 with disabilities defined as GM epilepsy, mild mental retardation/ learning disabled, and Autistic Spectrum Disorder - no mention of primary Mood Disorder. In recent years and particularly over the last year [facility] has seen psychotic sx emerge including PI, persecutory delusions, AH/VH; psychotic crises leading to this admission is the most acutely psychotic MOC has seen her son. She states she and pt's father want him to return to [place], again live with family, and engage treatment in the community. ASSESSMENT/PLAN: residual manic/psychotic elements on exam which are improving; hx suggests SAD - Bipolar Type a/w other diagnoses as referenced/ no change in current meds or management as d/w Nursing in Rounds 12/26/16 11:36 DAY ' UPDATE/EXAM: Nursing reports over past 3 days pt has continued to evidence residual psychotic/manic elements with extremely disjointed thought process at times; has refused several doses of Abilify as he's c/o "restless legs which also feel like lead"; this AM pt states he took an Ativan and Abilify tablet he' d cheeked and saved in the interest of checking out his response to see if his legs still bothered him after he'd agreed to take a depot shot Abillify in speaking with me earlier; on f/u contact pt described the apparent side effect of akathisia he'd felt with previous compliance with Abilify; he agreed to try Cogentin 1 mg bid, continue the Abilify 10 mg bid and hold off on the depot injection of Abilify for 48 hours to assess his tolerance for the Abilify; He also agreed to take a loading trial of Depakote which he now says he's taken remotely which worked "to make me mellow" but was also sedating. ASSESSMENT/PLAN: residual psychotic/manic sx but improved partially on Abilify currently dosed at 10 mg bid; akathisia side-effect/ will prescribe Cogentin 1 mg bid and begin Depakote ER 250 mg bid and observe mental status; continue current CP as d/w Nursing in Rounds; monitor meds compliance 12/27/16 14:20 DAY UPDATE/EXAM: Nursing reports pt has been more regressed in last 24 hours, intermittently agitated, cheeking meds; continuing to complain about Abilify causing LE side-effects; this aM he has tried to elope X 1 and ripped a railing off a bannister on the unit but clamed with limits applied/ on direct exam pt engaged and cooperated after limits again applied by me in session about need for control and compliance with cares and meds; he is unable to understand the trial of Abillify and Cogentin so I decided to Dc Abilify and begin Risperdal M TABS 3 mg bid which pt agrees to take with first dosing while still in my office ; other meds unchanged; pt + about speaker phone meeting with [facility] tomorrow. ASSESSMENT/PLAN: increased agitation, regressed behaviors, residual psychotic/ manic acuity a/w noncompliance with meds/ begin trial of Risperdal M tabs 3 mg bid, continue other meds as ordered, care plan strategies d/w Nursing post session 12/28/16 DAY UPDATE/EXAM: Nursing reports pt slept well, obsevably calmer and slightly more organized in thought process; is c/w new regimen a/w Risperdal M tabs 3 mg bid/ on direct exam pt soes present as calmer, with more integrated thought process; still expresses odd ideation which reflects borderline intelligence, includes paranoid elements, is tangential and distractible; is more accepting of DC back to family home in [place]; did well in speaker phone contact with [facility] about parents driving him back to [place] sometime next mary lou [facility]cost on sufficient progress. Mother expressed need for pt to engage in psychiatric treatment in the [place] to which pt agreed. ASSESSMENT/PLAN: less regressed behaviorally andless psycotic residual, more affective stability on exam today/ no change in meds and management plan as d/w Nursing in Rounds 12/29/16 11:45 DAY UPDATE/EXAM: Nursing reports pt continues to recompensate - slept well, more organized thought process, c/w cares and meds, improving social ego functions/ on direct exam is calm, cooperative, conversant; very concrete with bizarre ideation which reflects compromised IQ and some residual psychosis; mood mildly elevated ASSESSMENT/PLAN: descriptive improvement continues/ no change in meds but will increase Depakote in AM; contact with mother pending to set timetable for DC next week contingent on continued stabilization 12/30/16 06:52 Objective: Vital Signs Temp Pulse Resp BP Pulse Ox 36.9 C 88 16 132/90 H 97 12/30/16 04:00 12/30/16 04:00 12/30/16 04:00 12/30/16 04:00 12/30/16 04:00 ICD10 Worksheet Patient Problems: Problems Problem Status Onset Acute psychosis Acute
[2016-12-30] MEDS: DIVALPROEX ER 250 MG TAB PO SCH (08:07)
[2016-12-30] MEDS: NICOTINE 21 MG/24 HR PATCH TD SCH (08:07)
[2016-12-30] MEDS: LORazepam 0.5 MG TAB PO SCH ×3 (08:07→20:13)
[2016-12-30] MEDS: BENZTROPINE MESYLATE 1 MG TAB PO SCH ×2 (08:08→20:13)
[2016-12-30] MEDS: RISPERIDONE 1 MG ODT TAB SL SCH ×2 (08:08→20:12)
[2016-12-30] MEDS: ACETAMINOPHEN 325 MG TAB PO PRN (10:18)
[2016-12-30] MEDS: NICOTINE POLACRILEX 2 MG GUM B PRN ×4 (10:19→17:19)
--- NOTE | 2016-12-30 14:59 | SOAPPROG ---
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 ASSESSMENT/PLAN: early phase evidence that pt is recompensating and cooperative in engaging Care Plan/ no change in current meds or management plan 12/20/16 13:30 DAY ' UPDATE/EXAM: Nursing reports slept 11 hr, observed as drowsy and more time in bed; PI and POS noted on MSE by nursing and CC earlier today/ on direct exam pt is drowsy and in bed; thought process unchanged with residual PI and impoverishment; discussed meds changes a/w decrease of Ativan and increase of Abilify which pt is accepting; also again he gives me permission to reach [facility] for expanding data base and explore options at [place] ASSESSMENT/PLAN: residual psychotic acuity; probable Ativan-induced sedation/ decrease Ativan to 0.5 mg tid and Vistaril prn; increase Abilify to 10 mg bid; Care plan discussed with Nursing - mobilize OOR and promote socialization 12/21/16 DAY UPDATE/EXAM: Nursing reports pt slept 10 hours, less drowsy and OOR into milieu this AM; interacting socially with selective pts and attending to self-care, c/ w meds and cares; on direct exam evidences residual persecutory delusions about water but less guarded and less pressured speech; again gives permission for me to speak to mother and generally responsive to reintegrative support during session. ASSESSMENT/PLAN: early phase progress in recompensating/ no change in meds or management plan as discussed in Rounds 12/22/16 11:30 DAY UPDATE/EXAM: Nursing reorts pt continues to sleep well, c/w cares and meds, gradually more visible in milieu and attending selective groups/ on direct exam pt evidences improving signs a/w less POS and slowed mentation, improving reality-testing capacity, improving capacity for conversant mode; residual manic elements remains as does IOR and PI. INTAKE/MOC: she reports that mood instability with preponderant manic episodes began in childhood and have continued to the present; assessed as disabled at age 18 with disabilities defined as GM epilepsy, mild mental retardation/ learning disabled, and Autistic Spectrum Disorder - no mention of primary Mood Disorder. In recent years and particularly over the last year [facility] has seen psychotic sx emerge including PI, persecutory delusions, AH/VH; psychotic crises leading to this admission is the most acutely psychotic MOC has seen her son. She states she and pt's father want him to return to [place], again live with family, and engage treatment in the community. ASSESSMENT/PLAN: residual manic/psychotic elements on exam which are improving; hx suggests SAD - Bipolar Type a/w other diagnoses as referenced/ no change in current meds or management as d/w Nursing in Rounds 12/26/16 11:36 DAY ' UPDATE/EXAM: Nursing reports over past 3 days pt has continued to evidence residual psychotic/manic elements with extremely disjointed thought process at times; has refused several doses of Abilify as he's c/o "restless legs which also feel like lead"; this AM pt states he took an Ativan and Abilify tablet he' d cheeked and saved in the interest of checking out his response to see if his legs still bothered him after he'd agreed to take a depot shot Abillify in speaking with me earlier; on f/u contact pt described the apparent side effect of akathisia he'd felt with previous compliance with Abilify; he agreed to try Cogentin 1 mg bid, continue the Abilify 10 mg bid and hold off on the depot injection of Abilify for 48 hours to assess his tolerance for the Abilify; He also agreed to take a loading trial of Depakote which he now says he's taken remotely which worked "to make me mellow" but was also sedating. ASSESSMENT/PLAN: residual psychotic/manic sx but improved partially on Abilify currently dosed at 10 mg bid; akathisia side-effect/ will prescribe Cogentin 1 mg bid and begin Depakote ER 250 mg bid and observe mental status; continue current CP as d/w Nursing in Rounds; monitor meds compliance 12/27/16 14:20 DAY UPDATE/EXAM: Nursing reports pt has been more regressed in last 24 hours, intermittently agitated, cheeking meds; continuing to complain about Abilify causing LE side-effects; this aM he has tried to elope X 1 and ripped a railing off a bannister on the unit but clamed with limits applied/ on direct exam pt engaged and cooperated after limits again applied by me in session about need for control and compliance with cares and meds; he is unable to understand the trial of Abillify and Cogentin so I decided to Dc Abilify and begin Risperdal M TABS 3 mg bid which pt agrees to take with first dosing while still in my office ; other meds unchanged; pt + about speaker phone meeting with [facility] tomorrow. ASSESSMENT/PLAN: increased agitation, regressed behaviors, residual psychotic/ manic acuity a/w noncompliance with meds/ begin trial of Risperdal M tabs 3 mg bid, continue other meds as ordered, care plan strategies d/w Nursing post session 12/28/16 DAY UPDATE/EXAM: Nursing reports pt slept well, obsevably calmer and slightly more organized in thought process; is c/w new regimen a/w Risperdal M tabs 3 mg bid/ on direct exam pt soes present as calmer, with more integrated thought process; still expresses odd ideation which reflects borderline intelligence, includes paranoid elements, is tangential and distractible; is more accepting of DC back to family home in [place]; did well in speaker phone contact with [facility] about parents driving him back to [place] sometime next mary lou [place]cost on sufficient progress. Mother expressed need for pt to engage in psychiatric treatment in the co mmunity to which pt agreed. ASSESSMENT/PLAN: less regressed behaviorally andless psycotic residual, more affective stability on exam today/ no change in meds and management plan as d/w Nursing in Rounds 12/29/16 11:45 DAY UPDATE/EXAM: Nursing reports pt continues to recompensate - slept well, more organized thought process, c/w cares and meds, improving social ego functions/ on direct exam is calm, cooperative, conversant; very concrete with bizarre ideation which reflects compromised IQ and some residual psychosis; mood mildly elevated ASSESSMENT/PLAN: descriptive improvement continues/ no change in meds but will increase Depakote in AM; contact with mother pending to set timetable for DC next week contingent on continued stabilizatio 12/30/16 14:46 DAY ' UPDATE/EXAM: Pt tried to elope from unit late second shift yesterday by running thru a magnetized emergency exit door; was retrieved by Nursing staff and security and brought back to the unit and placed in seclusion; pt did scuffle briefly with security when engaged outside but cooperated then with being brought back and did not physically struggle again; he complied with meds and stayed in control in the SR thru his release this AM after I saw him with Nursing staff; has remained calm and compliant with care and meds today and states he will remain in control; the trigger for pt's elopement was a paranoid response to his RN who briefly misinterpreted his Ativan order but then corrected himself but pt unable to hear clearly and reacted with PI and then eloped./ on direct exam pt was calm, conversant, relatively organized and able to rehash the reality of what happened yesterday; he also did well with mother in speaker phone contact which focus on DC planning with DC date set for next Monday after father drives up to drive pt over 2 days to return to family home and followup outpt rx; pt understand and accepting this disposition - essentially picking up his inpt rx plan after the interruption of the elopement and SR episode. ASSESSMENT/PLAN: regressive episode as referenced with pt reintegrating to improved level to work thru remainder of inpt course with DC date of 01/06/ will increase DK dosing to 1000 mg qd, no other meds changes, management plan d/w Nursing in Rounds. Objective: Vital Signs Temp Pulse Resp BP Pulse Ox 36.4 C 106 H 20 156/84 H 100 12/30/16 08:27 12/30/16 08:27 12/30/16 08:27 12/30/16 08:27 12/30/16 08:27 ICD10 Worksheet Patient Problems: Problems Problem Status Onset Acute psychosis Acute
[2016-12-30] MEDS: DIVALPROEX ER 500 MG TAB PO SCH ×2 (20:10→20:25)
[2016-12-31] MEDS: ZOLPIDEM TARTRATE 5 MG TAB PO PRN (04:43)
--- NOTE | 2016-12-31 06:46 | SOAPPROG ---
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 ASSESSMENT/PLAN: early phase evidence that pt is recompensating and cooperative in engaging Care Plan/ no change in current meds or management plan 12/20/16 13:30 DAY ' UPDATE/EXAM: Nursing reports slept 11 hr, observed as drowsy and more time in bed; PI and POS noted on MSE by nursing and CC earlier today/ on direct exam pt is drowsy and in bed; thought process unchanged with residual PI and impoverishment; discussed meds changes a/w decrease of Ativan and increase of Abilify which pt is accepting; also again he gives me permission to reach [facility] for expanding data base and explore options at [place] ASSESSMENT/PLAN: residual psychotic acuity; probable Ativan-induced sedation/ decrease Ativan to 0.5 mg tid and Vistaril prn; increase Abilify to 10 mg bid; Care plan discussed with Nursing - mobilize OOR and promote socialization 12/21/16 DAY UPDATE/EXAM: Nursing reports pt slept 10 hours, less drowsy and OOR into milieu this AM; interacting socially with selective pts and attending to self-care, c/ w meds and cares; on direct exam evidences residual persecutory delusions about water but less guarded and less pressured speech; again gives permission for me to speak to mother and generally responsive to reintegrative support during session. ASSESSMENT/PLAN: early phase progress in recompensating/ no change in meds or management plan as discussed in Rounds 12/22/16 11:30 DAY UPDATE/EXAM: Nursing reorts pt continues to sleep well, c/w cares and meds, gradually more visible in milieu and attending selective groups/ on direct exam pt evidences improving signs a/w less POS and slowed mentation, improving reality-testing capacity, improving capacity for conversant mode; residual manic elements remains as does IOR and PI. INTAKE/MOC: she reports that mood instability with preponderant manic episodes began in childhood and have continued to the present; assessed as disabled at age 18 with disabilities defined as GM epilepsy, mild mental retardation/ learning disabled, and Autistic Spectrum Disorder - no mention of primary Mood Disorder. In recent years and particularly over the last year [facility] has seen psychotic sx emerge including PI, persecutory delusions, AH/VH; psychotic crises leading to this admission is the most acutely psychotic MOC has seen her son. She states she and pt's father want him to return to [place], again live with family, and engage treatment in the community. ASSESSMENT/PLAN: residual manic/psychotic elements on exam which are improving; hx suggests SAD - Bipolar Type a/w other diagnoses as referenced/ no change in current meds or management as d/w Nursing in Rounds 12/26/16 11:36 DAY ' UPDATE/EXAM: Nursing reports over past 3 days pt has continued to evidence residual psychotic/manic elements with extremely disjointed thought process at times; has refused several doses of Abilify as he's c/o "restless legs which also feel like lead"; this AM pt states he took an Ativan and Abilify tablet he' d cheeked and saved in the interest of checking out his response to see if his legs still bothered him after he'd agreed to take a depot shot Abillify in speaking with me earlier; on f/u contact pt described the apparent side effect of akathisia he'd felt with previous compliance with Abilify; he agreed to try Cogentin 1 mg bid, continue the Abilify 10 mg bid and hold off on the depot injection of Abilify for 48 hours to assess his tolerance for the Abilify; He also agreed to take a loading trial of Depakote which he now says he's taken remotely which worked "to make me mellow" but was also sedating. ASSESSMENT/PLAN: residual psychotic/manic sx but improved partially on Abilify currently dosed at 10 mg bid; akathisia side-effect/ will prescribe Cogentin 1 mg bid and begin Depakote ER 250 mg bid and observe mental status; continue current CP as d/w Nursing in Rounds; monitor meds compliance 12/27/16 14:20 DAY UPDATE/EXAM: Nursing reports pt has been more regressed in last 24 hours, intermittently agitated, cheeking meds; continuing to complain about Abilify causing LE side-effects; this aM he has tried to elope X 1 and ripped a railing off a bannister on the unit but clamed with limits applied/ on direct exam pt engaged and cooperated after limits again applied by me in session about need for control and compliance with cares and meds; he is unable to understand the trial of Abillify and Cogentin so I decided to Dc Abilify and begin Risperdal M TABS 3 mg bid which pt agrees to take with first dosing while still in my office ; other meds unchanged; pt + about speaker phone meeting with [facility] tomorrow. ASSESSMENT/PLAN: increased agitation, regressed behaviors, residual psychotic/ manic acuity a/w noncompliance with meds/ begin trial of Risperdal M tabs 3 mg bid, continue other meds as ordered, care plan strategies d/w Nursing post session 12/28/16 DAY UPDATE/EXAM: Nursing reports pt slept well, observably calmer and slightly more organized in thought process; is c/w new regimen a/w Risperdal M tabs 3 mg bid/ on direct exam pt does present as calmer, with more integrated thought process; still expresses odd ideation which reflects borderline intelligence, includes paranoid elements, is tangential and distractible; is more accepting of DC back to family home in [place]; did well in speaker phone contact with [facility] about parents driving him back to [place] sometime next week contingent on sufficient progress. Mother expressed need for pt to engage in psychiatric treatment in the co- mmunity to which pt agreed. ASSESSMENT/PLAN: less regressed behaviorally and less psychotic residual, more affective stability on exam today/ no change in meds and management plan as d/w Nursing in Rounds 12/29/16 11:45 DAY UPDATE/EXAM: Nursing reports pt continues to recompensate - slept well, more organized thought process, c/w cares and meds, improving social ego functions/ on direct exam is calm, cooperative, conversant; very concrete with bizarre ideation which reflects compromised IQ and some residual psychosis; mood mildly elevated ASSESSMENT/PLAN: descriptive improvement continues/ no change in meds but will increase Depakote in AM; contact with mother pending to set timetable for DC next week contingent on continued stabilization 12/30/16 14:46 DAY ' UPDATE/EXAM: Pt tried to elope from unit late second shift yesterday by running thru a magnetized emergency exit door; was retrieved by Nursing staff and security and brought back to the unit and placed in seclusion; pt did scuffle briefly with security when engaged outside but cooperated then with being brought back and did not physically struggle again; he complied with meds and stayed in control in the SR thru his release this AM after I saw him with Nursing staff; has remained calm and compliant with care and meds today and states he will remain in control; the trigger for pt's elopement was a paranoid response to his RN who briefly misinterpreted his Ativan order but then corrected himself but pt unable to hear clearly and reacted with PI and then eloped./ on direct exam pt was calm, conversant, relatively organized and able to rehash the reality of what happened yesterday; he also did well with mother in speaker phone contact which focus on DC planning with DC date set for next Monday after father drives up to drive pt over 2 days to return to family home and followup outpt rx; pt understand and accepting this disposition - essentially picking up his inpt rx plan after the interruption of the elopement and SR episode. ASSESSMENT/PLAN: regressive episode as referenced with pt reintegrating to improved level to work thru remainder of inpt course with DC date of 01/06/ will increase DK dosing to 1000 mg qd, no other meds changes, management plan d/w Nursing in Rounds Objective: Vital Signs Temp Pulse Resp BP Pulse Ox 36.5 C 107 H 15 120/81 H 93 12/31/16 06:26 12/31/16 06:26 12/31/16 06:26 12/31/16 06:26 12/31/16 06:26 ICD10 Worksheet Patient Problems: Problems Problem Status Onset Acute psychosis Acute
[2016-12-31] MEDS: NICOTINE 21 MG/24 HR PATCH TD SCH (08:37)
[2016-12-31] MEDS: LORazepam 0.5 MG TAB PO SCH ×3 (08:38→20:51)
[2016-12-31] MEDS: BENZTROPINE MESYLATE 1 MG TAB PO SCH ×2 (08:38→20:51)
[2016-12-31] MEDS: DIVALPROEX ER 250 MG TAB PO SCH (08:38)
[2016-12-31] MEDS: RISPERIDONE 1 MG ODT TAB SL SCH ×2 (08:38→20:51)
[2016-12-31] MEDS: hydrOXYzine HCL 50 MG TAB PO PRN (08:42)
[2016-12-31] MEDS: NICOTINE POLACRILEX 2 MG GUM B PRN ×4 (08:45→20:56)
[2016-12-31] MEDS: OLANZapine DISINTEGR 10 MG TAB PO PRN ×2 (11:28→16:15)
[2016-12-31] MEDS: IBUPROFEN 600 MG TAB PO PRN ×2 (12:51→20:50)
--- NOTE | 2016-12-31 15:54 | SOAPPROG ---
SOAP Progress Note Assessment/Plan: Assessment: Plan: 12/31/16 15:54 Improving. CCM. Will continue to encourage VPA. Subjective: Pt seen, discussed with staff, chart reviewed. He is a 31 y/o CM with multiple psychiatric and cognitive issues. Has calmed since his elopement. States to me today that he will "be chill" until he d/c's next week. Has been compliant with treatments and meds though refused one dose of VPA after it was increased. I explained to him that this is till not a high dose. He insists he does best on Zyprexa alone or with only 250mg of VPA. Objective: Vital Signs Temp Pulse Resp BP Pulse Ox 36.5 C 107 H 15 120/81 H 93 12/31/16 06:26 12/31/16 06:26 12/31/16 06:26 12/31/16 06:26 12/31/16 06:26 MSE: Cooperative and engaging, though rambles throughout interview about multiple unrelated topics. Affect is blunted, stable. Mood is "great." States he is going to go back to college and then work for [employer]. States he has an inherent knowledge of physics and the universe "that [employer] really needs." Shows me drawings of crystals and the earth with length nonsensical explanations. - Time Spent With Patient Time Spent With Patient: 25" - Pending Discharge Pending Discharge Within 24 Hours: No Pending Discharge Within 48 Hours: No ICD10 Worksheet Patient Problems: Problems Problem Status Onset Acute psychosis Acute
[2016-12-31] MEDS: DIVALPROEX ER 500 MG TAB PO SCH (20:52)
[2017-01-01] MEDS: IBUPROFEN 600 MG TAB PO PRN (05:15)
[2017-01-01] MEDS: OLANZapine DISINTEGR 10 MG TAB PO PRN ×4 (05:16→21:07)
[2017-01-01] MEDS: RISPERIDONE 1 MG ODT TAB SL SCH ×2 (08:36→20:21)
[2017-01-01] MEDS: LORazepam 0.5 MG TAB PO SCH ×3 (08:36→20:20)
[2017-01-01] MEDS: NICOTINE 21 MG/24 HR PATCH TD SCH (08:36)
[2017-01-01] MEDS: BENZTROPINE MESYLATE 1 MG TAB PO SCH ×2 (08:37→20:19)
[2017-01-01] MEDS: hydrOXYzine HCL 50 MG TAB PO PRN ×2 (08:37→15:52)
[2017-01-01] MEDS: DIVALPROEX ER 250 MG TAB PO SCH ×2 (08:37→20:27)
[2017-01-01] MEDS: NICOTINE POLACRILEX 2 MG GUM B PRN ×2 (08:40→10:54)
[2017-01-01] MEDS: ALBUTEROL 60 PUFFS/8 GM MDI IH PRN (09:20)
[2017-01-01] MEDS ORDERED: diphenhydrAMINE 50 MG CAP PO ONE ×2 (09:31→09:33)
--- NOTE | 2017-01-01 11:50 | SOAPPROG ---
SOAP Progress Note Assessment/Plan: Assessment: Plan: 12/31/16 15:54 Improving. CCM. Will continue to encourage VPA. 01/01/17 11:50 Behaviorally stable. CCM. Subjective: Pt seen, discussed with staff. C/o throat constriction after eating a banana. He states, "That happens every time I eat a banana or peanuts." Given diphenhydramine. No visible distress. Breathing normally. Behaviors remains stable. Pleasant and interactive in milieu. Objective: Vital Signs Temp Pulse Resp BP Pulse Ox 36.5 C 125 H 15 146/85 H 95 12/31/16 06:26 01/01/17 09:20 12/31/16 06:26 01/01/17 09:20 01/01/17 09:20 MSE: Calm, coop. Affect is euthymic, stable, approp. Mood is "good" TP linear at times, but easily derails. TC reveals continued perseveration on grandiose themes. ICD10 Worksheet Patient Problems: Problems Problem Status Onset Acute psychosis Acute
[2017-01-02] MEDS: OLANZapine DISINTEGR 10 MG TAB PO PRN ×2 (06:37→10:20)
--- NOTE | 2017-01-02 06:44 | SOAPPROG ---
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 ASSESSMENT/PLAN: early phase evidence that pt is recompensating and cooperative in engaging Care Plan/ no change in current meds or management plan 12/20/16 13:30 DAY ' UPDATE/EXAM: Nursing reports slept 11 hr, observed as drowsy and more time in bed; PI and POS noted on MSE by nursing and CC earlier today/ on direct exam pt is drowsy and in bed; thought process unchanged with residual PI and impoverishment; discussed meds changes a/w decrease of Ativan and increase of Abilify which pt is accepting; also again he gives me permission to reach [facility] [place] and explore options at [place] ASSESSMENT/PLAN: residual psychotic acuity; probable Ativan-induced sedation/ decrease Ativan to 0.5 mg tid and Vistaril prn; increase Abilify to 10 mg bid; Care plan discussed with Nursing - mobilize OOR and promote socialization 12/21/16 DAY UPDATE/EXAM: Nursing reports pt slept 10 hours, less drowsy and OOR into milieu this AM; interacting socially with selective pts and attending to self-care, c/ w meds and cares; on direct exam evidences residual persecutory delusions about water but less guarded and less pressured speech; again gives permission for me to speak to mother and generally responsive to reintegrative support during session. ASSESSMENT/PLAN: early phase progress in recompensating/ no change in meds or management plan as discussed in Rounds 12/22/16 11:30 DAY UPDATE/EXAM: Nursing reorts pt continues to sleep well, c/w cares and meds, gradually more visible in milieu and attending selective groups/ on direct exam pt evidences improving signs a/w less POS and slowed mentation, improving reality-testing capacity, improving capacity for conversant mode; residual manic elements remains as does IOR and PI. INTAKE/MOC: she reports that mood instability with preponderant manic episodes began in childhood and have continued to the present; assessed as disabled at age 18 with disabilities defined as GM epilepsy, mild mental retardation/ learning disabled, and Autistic Spectrum Disorder - no mention of primary Mood Disorder. In recent years and particularly over the last year [facility] [place] seen psychotic sx emerge including PI, persecutory delusions, AH/VH; psychotic crises leading to this admission is the most acutely psychotic MOC has seen her son. She states she and pt's father want him to return to [place], again live with family, and engage treatment in the community. ASSESSMENT/PLAN: residual manic/psychotic elements on exam which are improving; hx suggests SAD - Bipolar Type a/w other diagnoses as referenced/ no change in current meds or management as d/w Nursing in Rounds 12/26/16 11:36 DAY ' UPDATE/EXAM: Nursing reports over past 3 days pt has continued to evidence residual psychotic/manic elements with extremely disjointed thought process at times; has refused several doses of Abilify as he's c/o "restless legs which also feel like lead"; this AM pt states he took an Ativan and Abilify tablet he' d cheeked and saved in the interest of checking out his response to see if his legs still bothered him after he'd agreed to take a depot shot Abillify in speaking with me earlier; on f/u contact pt described the apparent side effect of akathisia he'd felt with previous compliance with Abilify; he agreed to try Cogentin 1 mg bid, continue the Abilify 10 mg bid and hold off on the depot injection of Abilify for 48 hours to assess his tolerance for the Abilify; He also agreed to take a loading trial of Depakote which he now says he's taken remotely which worked "to make me mellow" but was also sedating. ASSESSMENT/PLAN: residual psychotic/manic sx but improved partially on Abilify currently dosed at 10 mg bid; akathisia side-effect/ will prescribe Cogentin 1 mg bid and begin Depakote ER 250 mg bid and observe mental status; continue current CP as d/w Nursing in Rounds; monitor meds compliance 12/27/16 14:20 DAY UPDATE/EXAM: Nursing reports pt has been more regressed in last 24 hours, intermittently agitated, cheeking meds; continuing to complain about Abilify causing LE side-effects; this aM he has tried to elope X 1 and ripped a railing off a bannister on the unit but clamed with limits applied/ on direct exam pt engaged and cooperated after limits again applied by me in session about need for control and compliance with cares and meds; he is unable to understand the trial of Abillify and Cogentin so I decided to Dc Abilify and begin Risperdal M TABS 3 mg bid which pt agrees to take with first dosing while still in my office ; other meds unchanged; pt + about speaker phone meeting with [facility] tomorrow. ASSESSMENT/PLAN: increased agitation, regressed behaviors, residual psychotic/ manic acuity a/w noncompliance with meds/ begin trial of Risperdal M tabs 3 mg bid, continue other meds as ordered, care plan strategies d/w Nursing post session 12/28/16 DAY UPDATE/EXAM: Nursing reports pt slept well, observably calmer and slightly more organized in thought process; is c/w new regimen a/w Risperdal M tabs 3 mg bid/ on direct exam pt does present as calmer, with more integrated thought process; still expresses odd ideation which reflects borderline intelligence, includes paranoid elements, is tangential and distractible; is more accepting of DC back to family home in [place]; did well in speaker phone contact with [facility] [place] parents driving him back to [place] sometime next week contingent on sufficient progress. Mother expressed need for pt to engage in psychiatric treatment in the co- mmunity to which pt agreed. ASSESSMENT/PLAN: less regressed behaviorally and less psychotic residual, more affective stability on exam today/ no change in meds and management plan as d/w Nursing in Rounds 12/29/16 11:45 DAY UPDATE/EXAM: Nursing reports pt continues to recompensate - slept well, more organized thought process, c/w cares and meds, improving social ego functions/ on direct exam is calm, cooperative, conversant; very concrete with bizarre ideation which reflects compromised IQ and some residual psychosis; mood mildly elevated ASSESSMENT/PLAN: descriptive improvement continues/ no change in meds but will increase Depakote in AM; contact with mother pending to set timetable for DC next week contingent on continued stabilization 12/30/16 14:46 DAY UPDATE/EXAM: Pt tried to elope from unit late second shift yesterday by running thru a magnetized emergency exit door; was retrieved by Nursing staff and security and brought back to the unit and placed in seclusion; pt did scuffle briefly with security when engaged outside but cooperated then with being brought back and did not physically struggle again; he complied with meds and stayed in control in the SR thru his release this AM after I saw him with Nursing staff; has remained calm and compliant with care and meds today and states he will remain in control; the trigger for pt's elopement was a paranoid response to his RN who briefly misinterpreted his Ativan order but then corrected himself but pt unable to hear clearly and reacted with PI and then eloped./ on direct exam pt was calm, conversant, relatively organized and able to rehash the reality of what happened yesterday; he also did well with mother in speaker phone contact which focus on DC planning with DC date set for next Monday after father drives up to drive pt over 2 days to return to family home and followup outpt rx; pt understand and accepting this disposition - essentially picking up his inpt rx plan after the interruption of the elopement and SR episode. ASSESSMENT/PLAN: regressive episode as referenced with pt reintegrating to improved level to work thru remainder of inpt course with DC date of 01/06/ will increase DK dosing to 1000 mg qd, no other meds changes, management plan d/w Nursing in Rounds 01/02/17 DAY UPDATE/EXAM: Objective: Vital Signs Temp Pulse Resp BP Pulse Ox 36.5 C 125 H 15 146/85 H 95 12/31/16 06:26 01/01/17 09:20 12/31/16 06:26 01/01/17 09:20 01/01/17 09:20 ICD10 Worksheet Patient Problems: Problems Problem Status Onset Acute psychosis Acute
[2017-01-02] MEDS: BENZTROPINE MESYLATE 1 MG TAB PO SCH ×2 (07:58→22:41)
[2017-01-02] MEDS: NICOTINE 21 MG/24 HR PATCH TD SCH (07:58)
[2017-01-02] MEDS: RISPERIDONE 1 MG ODT TAB SL SCH ×2 (07:58→22:43)
[2017-01-02] MEDS: DIVALPROEX ER 250 MG TAB PO SCH ×2 (07:59→22:42)
[2017-01-02] MEDS: LORazepam 0.5 MG TAB PO SCH ×3 (07:59→22:42)
[2017-01-02] MEDS ORDERED: OLANZapine DISINTEGR 10 MG TAB PO PRN (12:24)
--- NOTE | 2017-01-03 06:36 | SOAPPROG ---
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 ASSESSMENT/PLAN: early phase evidence that pt is recompensating and cooperative in engaging Care Plan/ no change in current meds or management plan 12/20/16 13:30 DAY ' UPDATE/EXAM: Nursing reports slept 11 hr, observed as drowsy and more time in bed; PI and POS noted on MSE by nursing and CC earlier today/ on direct exam pt is drowsy and in bed; thought process unchanged with residual PI and impoverishment; discussed meds changes a/w decrease of Ativan and increase of Abilify which pt is accepting; also again he gives me permission to reach [facility] for expanding data base and explore options at [place] ASSESSMENT/PLAN: residual psychotic acuity; probable Ativan-induced sedation/ decrease Ativan to 0.5 mg tid and Vistaril prn; increase Abilify to 10 mg bid; Care plan discussed with Nursing - mobilize OOR and promote socialization 12/21/16 DAY UPDATE/EXAM: Nursing reports pt slept 10 hours, less drowsy and OOR into milieu this AM; interacting socially with selective pts and attending to self-care, c/ w meds and cares; on direct exam evidences residual persecutory delusions about water but less guarded and less pressured speech; again gives permission for me to speak to mother and generally responsive to reintegrative support during session. ASSESSMENT/PLAN: early phase progress in recompensating/ no change in meds or management plan as discussed in Rounds 12/22/16 11:30 DAY UPDATE/EXAM: Nursing reorts pt continues to sleep well, c/w cares and meds, gradually more visible in milieu and attending selective groups/ on direct exam pt evidences improving signs a/w less POS and slowed mentation, improving reality-testing capacity, improving capacity for conversant mode; residual manic elements remains as does IOR and PI. INTAKE/MOC: she reports that mood instability with preponderant manic episodes began in childhood and have continued to the present; assessed as disabled at age 18 with disabilities defined as GM epilepsy, mild mental retardation/ learning disabled, and Autistic Spectrum Disorder - no mention of primary Mood Disorder. In recent years and particularly over the last year [facility] has seen psychotic sx emerge including PI, persecutory delusions, AH/VH; psychotic crises leading to this admission is the most acutely psychotic MOC has seen her son. She states she and pt's father want him to return to [place], again live with family, and engage treatment in the community. ASSESSMENT/PLAN: residual manic/psychotic elements on exam which are improving; hx suggests SAD - Bipolar Type a/w other diagnoses as referenced/ no change in current meds or management as d/w Nursing in Rounds 12/26/16 11:36 DAY ' UPDATE/EXAM: Nursing reports over past 3 days pt has continued to evidence residual psychotic/manic elements with extremely disjointed thought process at times; has refused several doses of Abilify as he's c/o "restless legs which also feel like lead"; this AM pt states he took an Ativan and Abilify tablet he' d cheeked and saved in the interest of checking out his response to see if his legs still bothered him after he'd agreed to take a depot shot Abillify in speaking with me earlier; on f/u contact pt described the apparent side effect of akathisia he'd felt with previous compliance with Abilify; he agreed to try Cogentin 1 mg bid, continue the Abilify 10 mg bid and hold off on the depot injection of Abilify for 48 hours to assess his tolerance for the Abilify; He also agreed to take a loading trial of Depakote which he now says he's taken remotely which worked "to make me mellow" but was also sedating. ASSESSMENT/PLAN: residual psychotic/manic sx but improved partially on Abilify currently dosed at 10 mg bid; akathisia side-effect/ will prescribe Cogentin 1 mg bid and begin Depakote ER 250 mg bid and observe mental status; continue current CP as d/w Nursing in Rounds; monitor meds compliance 12/27/16 14:20 DAY UPDATE/EXAM: Nursing reports pt has been more regressed in last 24 hours, intermittently agitated, cheeking meds; continuing to complain about Abilify causing LE side-effects; this aM he has tried to elope X 1 and ripped a railing off a bannister on the unit but clamed with limits applied/ on direct exam pt engaged and cooperated after limits again applied by me in session about need for control and compliance with cares and meds; he is unable to understand the trial of Abillify and Cogentin so I decided to Dc Abilify and begin Risperdal M TABS 3 mg bid which pt agrees to take with first dosing while still in my office ; other meds unchanged; pt + about speaker phone meeting with [facility] tomorrow. ASSESSMENT/PLAN: increased agitation, regressed behaviors, residual psychotic/ manic acuity a/w noncompliance with meds/ begin trial of Risperdal M tabs 3 mg bid, continue other meds as ordered, care plan strategies d/w Nursing post session 12/28/16 DAY UPDATE/EXAM: Nursing reports pt slept well, observably calmer and slightly more organized in thought process; is c/w new regimen a/w Risperdal M tabs 3 mg bid/ on direct exam pt does present as calmer, with more integrated thought process; still expresses odd ideation which reflects borderline intelligence, includes paranoid elements, is tangential and distractible; is more accepting of DC back to family home in [place]; did well in speaker phone contact with [facility] about parents driving him back to [place] sometime next week contingent on sufficient progress. Mother expressed need for pt to engage in psychiatric treatment in the co- mmunity to which pt agreed. ASSESSMENT/PLAN: less regressed behaviorally and less psychotic residual, more affective stability on exam today/ no change in meds and management plan as d/w Nursing in Rounds 12/29/16 11:45 DAY UPDATE/EXAM: Nursing reports pt continues to recompensate - slept well, more organized thought process, c/w cares and meds, improving social ego functions/ on direct exam is calm, cooperative, conversant; very concrete with bizarre ideation which reflects compromised IQ and some residual psychosis; mood mildly elevated ASSESSMENT/PLAN: descriptive improvement continues/ no change in meds but will increase Depakote in AM; contact with mother pending to set timetable for DC next week contingent on continued stabilization 12/30/16 14:46 DAY UPDATE/EXAM: Pt tried to elope from unit late second shift yesterday by running thru a magnetized emergency exit door; was retrieved by Nursing staff and security and brought back to the unit and placed in seclusion; pt did scuffle briefly with security when engaged outside but cooperated then with being brought back and did not physically struggle again; he complied with meds and stayed in control in the SR thru his release this AM after I saw him with Nursing staff; has remained calm and compliant with care and meds today and states he will remain in control; the trigger for pt's elopement was a paranoid response to his RN who briefly misinterpreted his Ativan order but then corrected himself but pt unable to hear clearly and reacted with PI and then eloped./ on direct exam pt was calm, conversant, relatively organized and able to rehash the reality of what happened yesterday; he also did well with mother in speaker phone contact which focus on DC planning with DC date set for next Monday after father drives up to drive pt over 2 days to return to family home and followup outpt rx; pt understand and accepting this disposition - essentially picking up his inpt rx plan after the interruption of the elopement and SR episode. ASSESSMENT/PLAN: regressive episode as referenced with pt reintegrating to improved level to work thru remainder of inpt course with DC date of 01/06/ will increase DK dosing to 1000 mg qd, no other meds changes, management plan d/w Nursing in Rounds 01/02/17 14:00 DAY ' UPDATE/EXAM: Nursing reports that pt remained in control over weekend, c/w cares and meds; thought process observable by covering psychiatrist as cnocrete , disjointed, bizarre with paranoid elements and ARLYN/ on direct exam pt is calm , cooperative, conversant; preoccupied with c/o dysphagia; during session spoke with [facility] who reports that pt has had h/o GERD; she also shared that pt has h/o petit mal variant seizures - becomes inattentive, tremulous in his hands, and paces. Spells can last for few minutes up to 15 - 20 minutes, are controlled with Depakote which pt has not complied with in the past. These seizures are separate from the GM seizures which pt has not had for years; pt understands the discussion and comprehends that Depakote he is now taking will likely prevent these events. Pt responded well to supportive comments from mother. He continues to accept the plan for dC and looks forward to seeing father on ; thought process better organized today. ASSESSMENT/PLAN: im;roving course sustained with no acting up over past 3 days/ serum dK pending; no change in management plan as d/w Nursing in Rounds; DC online for 01/06; will monitor pt for dysphagia Objective: Vital Signs Temp Pulse Resp BP Pulse Ox 36.7 C 101 H 14 111/79 94 01/03/17 05:18 01/03/17 05:18 01/03/17 05:18 01/03/17 05:18 01/03/17 05:18 ICD10 Worksheet Patient Problems: Problems Problem Status Onset Acute psychosis Acute
--- NOTE | 2017-01-03 06:37 | SOAPPROG ---
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 ASSESSMENT/PLAN: early phase evidence that pt is recompensating and cooperative in engaging Care Plan/ no change in current meds or management plan 12/20/16 13:30 DAY ' UPDATE/EXAM: Nursing reports slept 11 hr, observed as drowsy and more time in bed; PI and POS noted on MSE by nursing and CC earlier today/ on direct exam pt is drowsy and in bed; thought process unchanged with residual PI and impoverishment; discussed meds changes a/w decrease of Ativan and increase of Abilify which pt is accepting; also again he gives me permission to reach [facility] for expanding data base and explore options at PR ASSESSMENT/PLAN: residual psychotic acuity; probable Ativan-induced sedation/ decrease Ativan to 0.5 mg tid and Vistaril prn; increase Abilify to 10 mg bid; Care plan discussed with Nursing - mobilize OOR and promote socialization 12/21/16 DAY UPDATE/EXAM: Nursing reports pt slept 10 hours, less drowsy and OOR into milieu this AM; interacting socially with selective pts and attending to self-care, c/ w meds and cares; on direct exam evidences residual persecutory delusions about water but less guarded and less pressured speech; again gives permission for me to speak to mother and generally responsive to reintegrative support during session. ASSESSMENT/PLAN: early phase progress in recompensating/ no change in meds or management plan as discussed in Rounds 12/22/16 11:30 DAY UPDATE/EXAM: Nursing reorts pt continues to sleep well, c/w cares and meds, gradually more visible in milieu and attending selective groups/ on direct exam pt evidences improving signs a/w less POS and slowed mentation, improving reality-testing capacity, improving capacity for conversant mode; residual manic elements remains as does IOR and PI. INTAKE/MOC: she reports that mood instability with preponderant manic episodes began in childhood and have continued to the present; assessed as disabled at age 18 with disabilities defined as GM epilepsy, mild mental retardation/ learning disabled, and Autistic Spectrum Disorder - no mention of primary Mood Disorder. In recent years and particularly over the last year [facility] has seen psychotic sx emerge including PI, persecutory delusions, AH/VH; psychotic crises leading to this admission is the most acutely psychotic MOC has seen her son. She states she and pt's father want him to return to [place], again live with family, and engage treatment in the community. ASSESSMENT/PLAN: residual manic/psychotic elements on exam which are improving; hx suggests SAD - Bipolar Type a/w other diagnoses as referenced/ no change in current meds or management as d/w Nursing in Rounds 12/26/16 11:36 DAY ' UPDATE/EXAM: Nursing reports over past 3 days pt has continued to evidence residual psychotic/manic elements with extremely disjointed thought process at times; has refused several doses of Abilify as he's c/o "restless legs which also feel like lead"; this AM pt states he took an Ativan and Abilify tablet he' d cheeked and saved in the interest of checking out his response to see if his legs still bothered him after he'd agreed to take a depot shot Abillify in speaking with me earlier; on f/u contact pt described the apparent side effect of akathisia he'd felt with previous compliance with Abilify; he agreed to try Cogentin 1 mg bid, continue the Abilify 10 mg bid and hold off on the depot injection of Abilify for 48 hours to assess his tolerance for the Abilify; He also agreed to take a loading trial of Depakote which he now says he's taken remotely which worked "to make me mellow" but was also sedating. ASSESSMENT/PLAN: residual psychotic/manic sx but improved partially on Abilify currently dosed at 10 mg bid; akathisia side-effect/ will prescribe Cogentin 1 mg bid and begin Depakote ER 250 mg bid and observe mental status; continue current CP as d/w Nursing in Rounds; monitor meds compliance 12/27/16 14:20 DAY UPDATE/EXAM: Nursing reports pt has been more regressed in last 24 hours, intermittently agitated, cheeking meds; continuing to complain about Abilify causing LE side-effects; this aM he has tried to elope X 1 and ripped a railing off a bannister on the unit but clamed with limits applied/ on direct exam pt engaged and cooperated after limits again applied by me in session about need for control and compliance with cares and meds; he is unable to understand the trial of Abillify and Cogentin so I decided to Dc Abilify and begin Risperdal M TABS 3 mg bid which pt agrees to take with first dosing while still in my office ; other meds unchanged; pt + about speaker phone meeting with [facility] tomorrow. ASSESSMENT/PLAN: increased agitation, regressed behaviors, residual psychotic/ manic acuity a/w noncompliance with meds/ begin trial of Risperdal M tabs 3 mg bid, continue other meds as ordered, care plan strategies d/w Nursing post session 12/28/16 DAY UPDATE/EXAM: Nursing reports pt slept well, observably calmer and slightly more organized in thought process; is c/w new regimen a/w Risperdal M tabs 3 mg bid/ on direct exam pt does present as calmer, with more integrated thought process; still expresses odd ideation which reflects borderline intelligence, includes paranoid elements, is tangential and distractible; is more accepting of DC back to family home in [place]; did well in speaker phone contact with [facility] about parents driving him back to [place] sometime next week contingent on sufficient progress. Mother expressed need for pt to engage in psychiatric treatment in the co- mmunity to which pt agreed. ASSESSMENT/PLAN: less regressed behaviorally and less psychotic residual, more affective stability on exam today/ no change in meds and management plan as d/w Nursing in Rounds 12/29/16 11:45 DAY UPDATE/EXAM: Nursing reports pt continues to recompensate - slept well, more organized thought process, c/w cares and meds, improving social ego functions/ on direct exam is calm, cooperative, conversant; very concrete with bizarre ideation which reflects compromised IQ and some residual psychosis; mood mildly elevated ASSESSMENT/PLAN: descriptive improvement continues/ no change in meds but will increase Depakote in AM; contact with mother pending to set timetable for DC next week contingent on continued stabilization 12/30/16 14:46 DAY UPDATE/EXAM: Pt tried to elope from unit late second shift yesterday by running thru a magnetized emergency exit door; was retrieved by Nursing staff and security and brought back to the unit and placed in seclusion; pt did scuffle briefly with security when engaged outside but cooperated then with being brought back and did not physically struggle again; he complied with meds and stayed in control in the SR thru his release this AM after I saw him with Nursing staff; has remained calm and compliant with care and meds today and states he will remain in control; the trigger for pt's elopement was a paranoid response to his RN who briefly misinterpreted his Ativan order but then corrected himself but pt unable to hear clearly and reacted with PI and then eloped./ on direct exam pt was calm, conversant, relatively organized and able to rehash the reality of what happened yesterday; he also did well with mother in speaker phone contact which focus on DC planning with DC date set for next Monday after father drives up to drive pt over 2 days to return to family home and followup outpt rx; pt understand and accepting this disposition - essentially picking up his inpt rx plan after the interruption of the elopement and SR episode. ASSESSMENT/PLAN: regressive episode as referenced with pt reintegrating to improved level to work thru remainder of inpt course with DC date of 01/06/ will increase DK dosing to 1000 mg qd, no other meds changes, management plan d/w Nursing in Rounds 01/02/17 14:00 DAY ' UPDATE/EXAM: Nursing reports that pt remained in control over weekend, c/w cares and meds; thought process observable by covering psychiatrist as cnocrete , disjointed, bizarre with paranoid elements and ARLYN/ on direct exam pt is calm , cooperative, conversant; preoccupied with c/o dysphagia; during session spoke with [facility] who reports that pt has had h/o GERD; she also shared that pt has h/o petit mal variant seizures - becomes inattentive, tremulous in his hands, and paces. Spells can last for few minutes up to 15 - 20 minutes, are controlled with Depakote which pt has not complied with in the past. These seizures are separate from the GM seizures which pt has not had for years; pt understands the discussion and comprehends that Depakote he is now taking will likely prevent these events. Pt responded well to supportive comments from mother. He continues to accept the plan for dC and looks forward to seeing father on ; thought process better organized today. ASSESSMENT/PLAN: im;roving course sustained with no acting up over past 3 days/ serum dK pending; no change in management plan as d/w Nursing in Rounds; DC online for 01/06; will monitor pt for dysphagia 01/03/17 DAY ' UPDAATE/EXAM: Objective: Vital Signs Temp Pulse Resp BP Pulse Ox 36.7 C 101 H 14 111/79 94 01/03/17 05:18 01/03/17 05:18 01/03/17 05:18 01/03/17 05:18 01/03/17 05:18 ICD10 Worksheet Patient Problems: Problems Problem Status Onset Acute psychosis Acute
[2017-01-03] MEDS: hydrOXYzine HCL 50 MG TAB PO PRN (07:30)
[2017-01-03] MEDS: DIVALPROEX ER 250 MG TAB PO SCH ×2 (07:30→19:22)
[2017-01-03] MEDS: BENZTROPINE MESYLATE 1 MG TAB PO SCH ×2 (07:30→21:59)
[2017-01-03] MEDS: RISPERIDONE 1 MG ODT TAB SL SCH ×2 (07:31→21:58)
[2017-01-03] MEDS: LORazepam 0.5 MG TAB PO SCH ×3 (07:31→21:59)
[2017-01-03] MEDS: ALBUTEROL 60 PUFFS/8 GM MDI IH PRN (07:53)
[2017-01-03] MEDS: NICOTINE 21 MG/24 HR PATCH TD SCH (10:28)
--- NOTE | 2017-01-03 14:32 | SOAPPROG ---
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 ASSESSMENT/PLAN: early phase evidence that pt is recompensating and cooperative in engaging Care Plan/ no change in current meds or management plan 12/20/16 13:30 DAY ' UPDATE/EXAM: Nursing reports slept 11 hr, observed as drowsy and more time in bed; PI and POS noted on MSE by nursing and CC earlier today/ on direct exam pt is drowsy and in bed; thought process unchanged with residual PI and impoverishment; discussed meds changes a/w decrease of Ativan and increase of Abilify which pt is accepting; also again he gives me permission to reach [facility] for expanding data base and explore options at [place] ASSESSMENT/PLAN: residual psychotic acuity; probable Ativan-induced sedation/ decrease Ativan to 0.5 mg tid and Vistaril prn; increase Abilify to 10 mg bid; Care plan discussed with Nursing - mobilize OOR and promote socialization 12/21/16 DAY UPDATE/EXAM: Nursing reports pt slept 10 hours, less drowsy and OOR into milieu this AM; interacting socially with selective pts and attending to self-care, c/ w meds and cares; on direct exam evidences residual persecutory delusions about water but less guarded and less pressured speech; again gives permission for me to speak to mother and generally responsive to reintegrative support during session. ASSESSMENT/PLAN: early phase progress in recompensating/ no change in meds or management plan as discussed in Rounds 12/22/16 11:30 DAY UPDATE/EXAM: Nursing reorts pt continues to sleep well, c/w cares and meds, gradually more visible in milieu and attending selective groups/ on direct exam pt evidences improving signs a/w less POS and slowed mentation, improving reality-testing capacity, improving capacity for conversant mode; residual manic elements remains as does IOR and PI. INTAKE/MOC: she reports that mood instability with preponderant manic episodes began in childhood and have continued to the present; assessed as disabled at age 18 with disabilities defined as GM epilepsy, mild mental retardation/ learning disabled, and Autistic Spectrum Disorder - no mention of primary Mood Disorder. In recent years and particularly over the last year [facility] has seen psychotic sx emerge including PI, persecutory delusions, AH/VH; psychotic crises leading to this admission is the most acutely psychotic MOC has seen her son. She states she and pt's father want him to return to [place], again live with family, and engage treatment in the community. ASSESSMENT/PLAN: residual manic/psychotic elements on exam which are improving; hx suggests SAD - Bipolar Type a/w other diagnoses as referenced/ no change in current meds or management as d/w Nursing in Rounds 12/26/16 11:36 DAY ' UPDATE/EXAM: Nursing reports over past 3 days pt has continued to evidence residual psychotic/manic elements with extremely disjointed thought process at times; has refused several doses of Abilify as he's c/o "restless legs which also feel like lead"; this AM pt states he took an Ativan and Abilify tablet he' d cheeked and saved in the interest of checking out his response to see if his legs still bothered him after he'd agreed to take a depot shot Abillify in speaking with me earlier; on f/u contact pt described the apparent side effect of akathisia he'd felt with previous compliance with Abilify; he agreed to try Cogentin 1 mg bid, continue the Abilify 10 mg bid and hold off on the depot injection of Abilify for 48 hours to assess his tolerance for the Abilify; He also agreed to take a loading trial of Depakote which he now says he's taken remotely which worked "to make me mellow" but was also sedating. ASSESSMENT/PLAN: residual psychotic/manic sx but improved partially on Abilify currently dosed at 10 mg bid; akathisia side-effect/ will prescribe Cogentin 1 mg bid and begin Depakote ER 250 mg bid and observe mental status; continue current CP as d/w Nursing in Rounds; monitor meds compliance 12/27/16 14:20 DAY UPDATE/EXAM: Nursing reports pt has been more regressed in last 24 hours, intermittently agitated, cheeking meds; continuing to complain about Abilify causing LE side-effects; this aM he has tried to elope X 1 and ripped a railing off a bannister on the unit but clamed with limits applied/ on direct exam pt engaged and cooperated after limits again applied by me in session about need for control and compliance with cares and meds; he is unable to understand the trial of Abillify and Cogentin so I decided to Dc Abilify and begin Risperdal M TABS 3 mg bid which pt agrees to take with first dosing while still in my office ; other meds unchanged; pt + about speaker phone meeting with [facility] tomorrow. ASSESSMENT/PLAN: increased agitation, regressed behaviors, residual psychotic/ manic acuity a/w noncompliance with meds/ begin trial of Risperdal M tabs 3 mg bid, continue other meds as ordered, care plan strategies d/w Nursing post session 12/28/16 DAY UPDATE/EXAM: Nursing reports pt slept well, observably calmer and slightly more organized in thought process; is c/w new regimen a/w Risperdal M tabs 3 mg bid/ on direct exam pt does present as calmer, with more integrated thought process; still expresses odd ideation which reflects borderline intelligence, includes paranoid elements, is tangential and distractible; is more accepting of DC back to family home in [place]; did well in speaker phone contact with [facility] about parents driving him back to [place] sometime next week contingent on sufficient progress. Mother expressed need for pt to engage in psychiatric treatment in the co- mmunity to which pt agreed. ASSESSMENT/PLAN: less regressed behaviorally and less psychotic residual, more affective stability on exam today/ no change in meds and management plan as d/w Nursing in Rounds 12/29/16 11:45 DAY UPDATE/EXAM: Nursing reports pt continues to recompensate - slept well, more organized thought process, c/w cares and meds, improving social ego functions/ on direct exam is calm, cooperative, conversant; very concrete with bizarre ideation which reflects compromised IQ and some residual psychosis; mood mildly elevated ASSESSMENT/PLAN: descriptive improvement continues/ no change in meds but will increase Depakote in AM; contact with mother pending to set timetable for DC next week contingent on continued stabilization 12/30/16 14:46 DAY UPDATE/EXAM: Pt tried to elope from unit late second shift yesterday by running thru a magnetized emergency exit door; was retrieved by Nursing staff and security and brought back to the unit and placed in seclusion; pt did scuffle briefly with security when engaged outside but cooperated then with being brought back and did not physically struggle again; he complied with meds and stayed in control in the SR thru his release this AM after I saw him with Nursing staff; has remained calm and compliant with care and meds today and states he will remain in control; the trigger for pt's elopement was a paranoid response to his RN who briefly misinterpreted his Ativan order but then corrected himself but pt unable to hear clearly and reacted with PI and then eloped./ on direct exam pt was calm, conversant, relatively organized and able to rehash the reality of what happened yesterday; he also did well with mother in speaker phone contact which focus on DC planning with DC date set for next Monday after father drives up to drive pt over 2 days to return to family home and followup outpt rx; pt understand and accepting this disposition - essentially picking up his inpt rx plan after the interruption of the elopement and SR episode. ASSESSMENT/PLAN: regressive episode as referenced with pt reintegrating to improved level to work thru remainder of inpt course with DC date of 01/06/ will increase DK dosing to 1000 mg qd, no other meds changes, management plan d/w Nursing in Rounds 01/02/17 14:00 DAY ' UPDATE/EXAM: Nursing reports that pt remained in control over weekend, c/w cares and meds; thought process observable by covering psychiatrist as cnocrete , disjointed, bizarre with paranoid elements and ARLYN/ on direct exam pt is calm , cooperative, conversant; preoccupied with c/o dysphagia; during session spoke with [facility] who reports that pt has had h/o GERD; she also shared that pt has h/o petit mal variant seizures - becomes inattentive, tremulous in his hands, and paces. Spells can last for few minutes up to 15 - 20 minutes, are controlled with Depakote which pt has not complied with in the past. These seizures are separate from the GM seizures which pt has not had for years; pt understands the discussion and comprehends that Depakote he is now taking will likely prevent these events. Pt responded well to supportive comments from mother. He continues to accept the plan for dC and looks forward to seeing father on ; thought process better organized today. ASSESSMENT/PLAN: improving course sustained with no acting up over past 3 days/ serum DK pending; no change in management plan as d/w Nursing in Rounds; DC online for 01/06; will monitor pt for dysphagia 01/03/17 11:00 DAY ' UPDATE/EXAM: little change in mental status over last 24 hours o/t brief regression in which he didn't take hs DK and postponed serum DK until tomorrow as he's now again complying/ on direct exam is quiet, conversant; states intention to work thru to DC and will c/w meds, cares including the upcoming depot Risperdal injection tomorrow. ASSESSMENT/PLAN: sustaining gains and moving to DC 01/06/ no change in current meds or management plan; will order Risperdal Consta 50 mg IM to be given tomorrow Objective: Vital Signs Temp Pulse Resp BP Pulse Ox 36.7 C 101 H 14 111/79 94 01/03/17 05:18 01/03/17 05:18 01/03/17 05:18 01/03/17 05:18 01/03/17 05:18 ICD10 Worksheet Patient Problems: Problems Problem Status Onset Acute psychosis Acute
[2017-01-04] MEDS ORDERED: risperiDONE MICROSPHERES 50 MG/2 ML SYR IM ONE (06:33)
--- NOTE | 2017-01-04 06:37 | SOAPPROG ---
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 ASSESSMENT/PLAN: early phase evidence that pt is recompensating and cooperative in engaging Care Plan/ no change in current meds or management plan 12/20/16 13:30 DAY ' UPDATE/EXAM: Nursing reports slept 11 hr, observed as drowsy and more time in bed; PI and POS noted on MSE by nursing and CC earlier today/ on direct exam pt is drowsy and in bed; thought process unchanged with residual PI and impoverishment; discussed meds changes a/w decrease of Ativan and increase of Abilify which pt is accepting; also again he gives me permission to reach [facility] for expanding data base and explore options at [place] ASSESSMENT/PLAN: residual psychotic acuity; probable Ativan-induced sedation/ decrease Ativan to 0.5 mg tid and Vistaril prn; increase Abilify to 10 mg bid; Care plan discussed with Nursing - mobilize OOR and promote socialization 12/21/16 DAY UPDATE/EXAM: Nursing reports pt slept 10 hours, less drowsy and OOR into milieu this AM; interacting socially with selective pts and attending to self-care, c/ w meds and cares; on direct exam evidences residual persecutory delusions about water but less guarded and less pressured speech; again gives permission for me to speak to mother and generally responsive to reintegrative support during session. ASSESSMENT/PLAN: early phase progress in recompensating/ no change in meds or management plan as discussed in Rounds 12/22/16 11:30 DAY UPDATE/EXAM: Nursing reorts pt continues to sleep well, c/w cares and meds, gradually more visible in milieu and attending selective groups/ on direct exam pt evidences improving signs a/w less POS and slowed mentation, improving reality-testing capacity, improving capacity for conversant mode; residual manic elements remains as does IOR and PI. INTAKE/MOC: she reports that mood instability with preponderant manic episodes began in childhood and have continued to the present; assessed as disabled at age 18 with disabilities defined as GM epilepsy, mild mental retardation/ learning disabled, and Autistic Spectrum Disorder - no mention of primary Mood Disorder. In recent years and particularly over the last year [facility] has seen psychotic sx emerge including PI, persecutory delusions, AH/VH; psychotic crises leading to this admission is the most acutely psychotic MOC has seen her son. She states she and pt's father want him to return to [place], again live with family, and engage treatment in the community. ASSESSMENT/PLAN: residual manic/psychotic elements on exam which are improving; hx suggests SAD - Bipolar Type a/w other diagnoses as referenced/ no change in current meds or management as d/w Nursing in Rounds 12/26/16 11:36 DAY ' UPDATE/EXAM: Nursing reports over past 3 days pt has continued to evidence residual psychotic/manic elements with extremely disjointed thought process at times; has refused several doses of Abilify as he's c/o "restless legs which also feel like lead"; this AM pt states he took an Ativan and Abilify tablet he' d cheeked and saved in the interest of checking out his response to see if his legs still bothered him after he'd agreed to take a depot shot Abillify in speaking with me earlier; on f/u contact pt described the apparent side effect of akathisia he'd felt with previous compliance with Abilify; he agreed to try Cogentin 1 mg bid, continue the Abilify 10 mg bid and hold off on the depot injection of Abilify for 48 hours to assess his tolerance for the Abilify; He also agreed to take a loading trial of Depakote which he now says he's taken remotely which worked "to make me mellow" but was also sedating. ASSESSMENT/PLAN: residual psychotic/manic sx but improved partially on Abilify currently dosed at 10 mg bid; akathisia side-effect/ will prescribe Cogentin 1 mg bid and begin Depakote ER 250 mg bid and observe mental status; continue current CP as d/w Nursing in Rounds; monitor meds compliance 12/27/16 14:20 DAY UPDATE/EXAM: Nursing reports pt has been more regressed in last 24 hours, intermittently agitated, cheeking meds; continuing to complain about Abilify causing LE side-effects; this aM he has tried to elope X 1 and ripped a railing off a bannister on the unit but clamed with limits applied/ on direct exam pt engaged and cooperated after limits again applied by me in session about need for control and compliance with cares and meds; he is unable to understand the trial of Abillify and Cogentin so I decided to Dc Abilify and begin Risperdal M TABS 3 mg bid which pt agrees to take with first dosing while still in my office ; other meds unchanged; pt + about speaker phone meeting with [facility] tomorrow. ASSESSMENT/PLAN: increased agitation, regressed behaviors, residual psychotic/ manic acuity a/w noncompliance with meds/ begin trial of Risperdal M tabs 3 mg bid, continue other meds as ordered, care plan strategies d/w Nursing post session 12/28/16 DAY UPDATE/EXAM: Nursing reports pt slept well, observably calmer and slightly more organized in thought process; is c/w new regimen a/w Risperdal M tabs 3 mg bid/ on direct exam pt does present as calmer, with more integrated thought process; still expresses odd ideation which reflects borderline intelligence, includes paranoid elements, is tangential and distractible; is more accepting of DC back to family home in [place]; did well in speaker phone contact with [facility] about parents driving him back to [place] sometime next week contingent on sufficient progress. Mother expressed need for pt to engage in psychiatric treatment in the co- mmunity to which pt agreed. ASSESSMENT/PLAN: less regressed behaviorally and less psychotic residual, more affective stability on exam today/ no change in meds and management plan as d/w Nursing in Rounds 12/29/16 11:45 DAY UPDATE/EXAM: Nursing reports pt continues to recompensate - slept well, more organized thought process, c/w cares and meds, improving social ego functions/ on direct exam is calm, cooperative, conversant; very concrete with bizarre ideation which reflects compromised IQ and some residual psychosis; mood mildly elevated ASSESSMENT/PLAN: descriptive improvement continues/ no change in meds but will increase Depakote in AM; contact with mother pending to set timetable for DC next week contingent on continued stabilization 12/30/16 14:46 DAY UPDATE/EXAM: Pt tried to elope from unit late second shift yesterday by running thru a magnetized emergency exit door; was retrieved by Nursing staff and security and brought back to the unit and placed in seclusion; pt did scuffle briefly with security when engaged outside but cooperated then with being brought back and did not physically struggle again; he complied with meds and stayed in control in the SR thru his release this AM after I saw him with Nursing staff; has remained calm and compliant with care and meds today and states he will remain in control; the trigger for pt's elopement was a paranoid response to his RN who briefly misinterpreted his Ativan order but then corrected himself but pt unable to hear clearly and reacted with PI and then eloped./ on direct exam pt was calm, conversant, relatively organized and able to rehash the reality of what happened yesterday; he also did well with mother in speaker phone contact which focus on DC planning with DC date set for next Monday after father drives up to drive pt over 2 days to return to family home and followup outpt rx; pt understand and accepting this disposition - essentially picking up his inpt rx plan after the interruption of the elopement and SR episode. ASSESSMENT/PLAN: regressive episode as referenced with pt reintegrating to improved level to work thru remainder of inpt course with DC date of 01/06/ will increase DK dosing to 1000 mg qd, no other meds changes, management plan d/w Nursing in Rounds 01/02/17 14:00 DAY ' UPDATE/EXAM: Nursing reports that pt remained in control over weekend, c/w cares and meds; thought process observable by covering psychiatrist as concrete , disjointed, bizarre with paranoid elements and ARLYN/ on direct exam pt is calm , cooperative, conversant; preoccupied with c/o dysphagia; during session spoke with [facility] who reports that pt has had h/o GERD; she also shared that pt has h/o petit mal variant seizures - becomes inattentive, tremulous in his hands, and paces. Spells can last for few minutes up to 15 - 20 minutes, are controlled with Depakote which pt has not complied with in the past. These seizures are separate from the GM seizures which pt has not had for years; pt understands the discussion and comprehends that Depakote he is now taking will likely prevent these events. Pt responded well to supportive comments from mother. He continues to accept the plan for DC and looks forward to seeing father on ; thought process better organized today. ASSESSMENT/PLAN: improving course sustained with no acting up over past 3 days/ serum DK pending; no change in management plan as d/w Nursing in Rounds; DC online for 01/06; will monitor pt for dysphagia 01/03/17 11:00 DAY ' UPDATE/EXAM: little change in mental status over last 24 hours o/t brief regression in which he didn't take hs DK and postponed serum DK until tomorrow as he's now again complying/ on direct exam is quiet, conversant; states intention to work thru to DC and will c/w meds, cares including the upcoming depot Risperdal injection tomorrow. ASSESSMENT/PLAN: sustaining gains and moving to DC 01/06/ no change in current meds or management plan; will order Risperdal Consta 50 mg IM to be given tomorrow 01/04/17 DAY ' UPDATE/EXAM: Objective: Vital Signs Temp Pulse Resp BP Pulse Ox 36.8 C 109 H 14 135/80 H 96 01/04/17 06:26 01/04/17 06:26 01/04/17 06:26 01/04/17 06:26 01/04/17 06:26 ICD10 Worksheet Patient Problems: Problems Problem Status Onset Acute psychosis Acute
[2017-01-04] MEDS: LORazepam 0.5 MG TAB PO SCH ×3 (08:03→21:17)
[2017-01-04] MEDS: DIVALPROEX ER 250 MG TAB PO SCH ×2 (08:03→21:18)
[2017-01-04] MEDS: BENZTROPINE MESYLATE 1 MG TAB PO SCH ×2 (08:03→21:18)
[2017-01-04] MEDS: RISPERIDONE 1 MG ODT TAB SL SCH ×2 (09:44→21:17)
[2017-01-04] MEDS: NICOTINE 21 MG/24 HR PATCH TD SCH (10:51)
--- NOTE | 2017-01-04 10:54 | SOAPPROG ---
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 ASSESSMENT/PLAN: early phase evidence that pt is recompensating and cooperative in engaging Care Plan/ no change in current meds or management plan 12/20/16 13:30 DAY ' UPDATE/EXAM: Nursing reports slept 11 hr, observed as drowsy and more time in bed; PI and POS noted on MSE by nursing and CC earlier today/ on direct exam pt is drowsy and in bed; thought process unchanged with residual PI and impoverishment; discussed meds changes a/w decrease of Ativan and increase of Abilify which pt is accepting; also again he gives me permission to reach [facility] for expanding data base and explore options at [place] ASSESSMENT/PLAN: residual psychotic acuity; probable Ativan-induced sedation/ decrease Ativan to 0.5 mg tid and Vistaril prn; increase Abilify to 10 mg bid; Care plan discussed with Nursing - mobilize OOR and promote socialization 12/21/16 DAY UPDATE/EXAM: Nursing reports pt slept 10 hours, less drowsy and OOR into milieu this AM; interacting socially with selective pts and attending to self-care, c/ w meds and cares; on direct exam evidences residual persecutory delusions about water but less guarded and less pressured speech; again gives permission for me to speak to mother and generally responsive to reintegrative support during session. ASSESSMENT/PLAN: early phase progress in recompensating/ no change in meds or management plan as discussed in Rounds 12/22/16 11:30 DAY UPDATE/EXAM: Nursing reorts pt continues to sleep well, c/w cares and meds, gradually more visible in milieu and attending selective groups/ on direct exam pt evidences improving signs a/w less POS and slowed mentation, improving reality-testing capacity, improving capacity for conversant mode; residual manic elements remains as does IOR and PI. INTAKE/MOC: she reports that mood instability with preponderant manic episodes began in childhood and have continued to the present; assessed as disabled at age 18 with disabilities defined as GM epilepsy, mild mental retardation/ learning disabled, and Autistic Spectrum Disorder - no mention of primary Mood Disorder. In recent years and particularly over the last year [facility] has seen psychotic sx emerge including PI, persecutory delusions, AH/VH; psychotic crises leading to this admission is the most acutely psychotic MOC has seen her son. She states she and pt's father want him to return to [place], again live with family, and engage treatment in the community. ASSESSMENT/PLAN: residual manic/psychotic elements on exam which are improving; hx suggests SAD - Bipolar Type a/w other diagnoses as referenced/ no change in current meds or management as d/w Nursing in Rounds 12/26/16 11:36 DAY ' UPDATE/EXAM: Nursing reports over past 3 days pt has continued to evidence residual psychotic/manic elements with extremely disjointed thought process at times; has refused several doses of Abilify as he's c/o "restless legs which also feel like lead"; this AM pt states he took an Ativan and Abilify tablet he' d cheeked and saved in the interest of checking out his response to see if his legs still bothered him after he'd agreed to take a depot shot Abillify in speaking with me earlier; on f/u contact pt described the apparent side effect of akathisia he'd felt with previous compliance with Abilify; he agreed to try Cogentin 1 mg bid, continue the Abilify 10 mg bid and hold off on the depot injection of Abilify for 48 hours to assess his tolerance for the Abilify; He also agreed to take a loading trial of Depakote which he now says he's taken remotely which worked "to make me mellow" but was also sedating. ASSESSMENT/PLAN: residual psychotic/manic sx but improved partially on Abilify currently dosed at 10 mg bid; akathisia side-effect/ will prescribe Cogentin 1 mg bid and begin Depakote ER 250 mg bid and observe mental status; continue current CP as d/w Nursing in Rounds; monitor meds compliance 12/27/16 14:20 DAY UPDATE/EXAM: Nursing reports pt has been more regressed in last 24 hours, intermittently agitated, cheeking meds; continuing to complain about Abilify causing LE side-effects; this aM he has tried to elope X 1 and ripped a railing off a bannister on the unit but clamed with limits applied/ on direct exam pt engaged and cooperated after limits again applied by me in session about need for control and compliance with cares and meds; he is unable to understand the trial of Abillify and Cogentin so I decided to Dc Abilify and begin Risperdal M TABS 3 mg bid which pt agrees to take with first dosing while still in my office ; other meds unchanged; pt + about speaker phone meeting with [facility] tomorrow. ASSESSMENT/PLAN: increased agitation, regressed behaviors, residual psychotic/ manic acuity a/w noncompliance with meds/ begin trial of Risperdal M tabs 3 mg bid, continue other meds as ordered, care plan strategies d/w Nursing post session 12/28/16 DAY UPDATE/EXAM: Nursing reports pt slept well, observably calmer and slightly more organized in thought process; is c/w new regimen a/w Risperdal M tabs 3 mg bid/ on direct exam pt does present as calmer, with more integrated thought process; still expresses odd ideation which reflects borderline intelligence, includes paranoid elements, is tangential and distractible; is more accepting of DC back to family home in [place]; did well in speaker phone contact with [facility] about parents driving him back to [place] sometime next week contingent on sufficient progress. Mother expressed need for pt to engage in psychiatric treatment in the co- mmunity to which pt agreed. ASSESSMENT/PLAN: less regressed behaviorally and less psychotic residual, more affective stability on exam today/ no change in meds and management plan as d/w Nursing in Rounds 12/29/16 11:45 DAY UPDATE/EXAM: Nursing reports pt continues to recompensate - slept well, more organized thought process, c/w cares and meds, improving social ego functions/ on direct exam is calm, cooperative, conversant; very concrete with bizarre ideation which reflects compromised IQ and some residual psychosis; mood mildly elevated ASSESSMENT/PLAN: descriptive improvement continues/ no change in meds but will increase Depakote in AM; contact with mother pending to set timetable for DC next week contingent on continued stabilization 12/30/16 14:46 DAY UPDATE/EXAM: Pt tried to elope from unit late second shift yesterday by running thru a magnetized emergency exit door; was retrieved by Nursing staff and security and brought back to the unit and placed in seclusion; pt did scuffle briefly with security when engaged outside but cooperated then with being brought back and did not physically struggle again; he complied with meds and stayed in control in the SR thru his release this AM after I saw him with Nursing staff; has remained calm and compliant with care and meds today and states he will remain in control; the trigger for pt's elopement was a paranoid response to his RN who briefly misinterpreted his Ativan order but then corrected himself but pt unable to hear clearly and reacted with PI and then eloped./ on direct exam pt was calm, conversant, relatively organized and able to rehash the reality of what happened yesterday; he also did well with mother in speaker phone contact which focus on DC planning with DC date set for next Monday after father drives up to drive pt over 2 days to return to family home and followup outpt rx; pt understand and accepting this disposition - essentially picking up his inpt rx plan after the interruption of the elopement and SR episode. ASSESSMENT/PLAN: regressive episode as referenced with pt reintegrating to improved level to work thru remainder of inpt course with DC date of 01/06/ will increase DK dosing to 1000 mg qd, no other meds changes, management plan d/w Nursing in Rounds 01/02/17 14:00 DAY ' UPDATE/EXAM: Nursing reports that pt remained in control over weekend, c/w cares and meds; thought process observable by covering psychiatrist as concrete , disjointed, bizarre with paranoid elements and ARLYN/ on direct exam pt is calm , cooperative, conversant; preoccupied with c/o dysphagia; during session spoke with [facility] who reports that pt has had h/o GERD; she also shared that pt has h/o petit mal variant seizures - becomes inattentive, tremulous in his hands, and paces. Spells can last for few minutes up to 15 - 20 minutes, are controlled with Depakote which pt has not complied with in the past. These seizures are separate from the GM seizures which pt has not had for years; pt understands the discussion and comprehends that Depakote he is now taking will likely prevent these events. Pt responded well to supportive comments from mother. He continues to accept the plan for DC and looks forward to seeing father on ; thought process better organized today. ASSESSMENT/PLAN: improving course sustained with no acting up over past 3 days/ serum DK pending; no change in management plan as d/w Nursing in Rounds; DC online for 01/06; will monitor pt for dysphagia 01/03/17 11:00 DAY ' UPDATE/EXAM: little change in mental status over last 24 hours o/t brief regression in which he didn't take hs DK and postponed serum DK until tomorrow as he's now again complying/ on direct exam is quiet, conversant; states intention to work thru to DC and will c/w meds, cares including the upcoming depot Risperdal injection tomorrow. ASSESSMENT/PLAN: sustaining gains and moving to DC 01/06/ no change in current meds or management plan; will order Risperdal Consta 50 mg IM to be given tomorrow 01/04/17 09:15 DAY ' UPDATE/EXAM: Nursing reports pt remains in behavioral control and somewhat more organized in thought process; is c/w meds and cares and attending groups; not using prn Zyprexa/ on direct exam pt is calm, softer verbal tone and slower pace ; reports + contact with his father who is scheduled to arrive in [place] ; brief speaker phone meeting with pt and mother to discuss DC plans and obtained PCP telephone number; reviewed meds and pt accepting his Consta injection later today. ASSESSMENT/PLAN: building on descriptive gains as he works thru DC planning phase with DC on line 01/06/ will get Risperdal Consta injection today of 50 mg; no change in management plan or oral meds regimen Objective: Vital Signs Temp Pulse Resp BP Pulse Ox 36.8 C 109 H 14 135/80 H 96 01/04/17 06:26 01/04/17 06:26 01/04/17 06:26 01/04/17 06:26 01/04/17 06:26 ICD10 Worksheet Patient Problems: Problems Problem Status Onset Acute psychosis Acute
[2017-01-05] MEDS: ZOLPIDEM TARTRATE 5 MG TAB PO PRN (02:53)
--- NOTE | 2017-01-05 06:39 | SOAPPROG ---
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 ASSESSMENT/PLAN: early phase evidence that pt is recompensating and cooperative in engaging Care Plan/ no change in current meds or management plan 12/20/16 13:30 DAY ' UPDATE/EXAM: Nursing reports slept 11 hr, observed as drowsy and more time in bed; PI and POS noted on MSE by nursing and CC earlier today/ on direct exam pt is drowsy and in bed; thought process unchanged with residual PI and impoverishment; discussed meds changes a/w decrease of Ativan and increase of Abilify which pt is accepting; also again he gives me permission to reach [facility] [place] and explore options at [place] ASSESSMENT/PLAN: residual psychotic acuity; probable Ativan-induced sedation/ decrease Ativan to 0.5 mg tid and Vistaril prn; increase Abilify to 10 mg bid; Care plan discussed with Nursing - mobilize OOR and promote socialization 12/21/16 DAY UPDATE/EXAM: Nursing reports pt slept 10 hours, less drowsy and OOR into milieu this AM; interacting socially with selective pts and attending to self-care, c/ w meds and cares; on direct exam evidences residual persecutory delusions about water but less guarded and less pressured speech; again gives permission for me to speak to mother and generally responsive to reintegrative support during session. ASSESSMENT/PLAN: early phase progress in recompensating/ no change in meds or management plan as discussed in Rounds 12/22/16 11:30 DAY UPDATE/EXAM: Nursing reorts pt continues to sleep well, c/w cares and meds, gradually more visible in milieu and attending selective groups/ on direct exam pt evidences improving signs a/w less POS and slowed mentation, improving reality-testing capacity, improving capacity for conversant mode; residual manic elements remains as does IOR and PI. INTAKE/MOC: she reports that mood instability with preponderant manic episodes began in childhood and have continued to the present; assessed as disabled at age 18 with disabilities defined as GM epilepsy, mild mental retardation/ learning disabled, and Autistic Spectrum Disorder - no mention of primary Mood Disorder. In recent years and particularly over the last year [facility] [place] seen psychotic sx emerge including PI, persecutory delusions, AH/VH; psychotic crises leading to this admission is the most acutely psychotic MOC has seen her son. She states she and pt's father want him to return to [place], again live with family, and engage treatment in the community. ASSESSMENT/PLAN: residual manic/psychotic elements on exam which are improving; hx suggests SAD - Bipolar Type a/w other diagnoses as referenced/ no change in current meds or management as d/w Nursing in Rounds 12/26/16 11:36 DAY ' UPDATE/EXAM: Nursing reports over past 3 days pt has continued to evidence residual psychotic/manic elements with extremely disjointed thought process at times; has refused several doses of Abilify as he's c/o "restless legs which also feel like lead"; this AM pt states he took an Ativan and Abilify tablet he' d cheeked and saved in the interest of checking out his response to see if his legs still bothered him after he'd agreed to take a depot shot Abillify in speaking with me earlier; on f/u contact pt described the apparent side effect of akathisia he'd felt with previous compliance with Abilify; he agreed to try Cogentin 1 mg bid, continue the Abilify 10 mg bid and hold off on the depot injection of Abilify for 48 hours to assess his tolerance for the Abilify; He also agreed to take a loading trial of Depakote which he now says he's taken remotely which worked "to make me mellow" but was also sedating. ASSESSMENT/PLAN: residual psychotic/manic sx but improved partially on Abilify currently dosed at 10 mg bid; akathisia side-effect/ will prescribe Cogentin 1 mg bid and begin Depakote ER 250 mg bid and observe mental status; continue current CP as d/w Nursing in Rounds; monitor meds compliance 12/27/16 14:20 DAY UPDATE/EXAM: Nursing reports pt has been more regressed in last 24 hours, intermittently agitated, cheeking meds; continuing to complain about Abilify causing LE side-effects; this aM he has tried to elope X 1 and ripped a railing off a bannister on the unit but clamed with limits applied/ on direct exam pt engaged and cooperated after limits again applied by me in session about need for control and compliance with cares and meds; he is unable to understand the trial of Abillify and Cogentin so I decided to Dc Abilify and begin Risperdal M TABS 3 mg bid which pt agrees to take with first dosing while still in my office ; other meds unchanged; pt + about speaker phone meeting with [facility] tomorrow. ASSESSMENT/PLAN: increased agitation, regressed behaviors, residual psychotic/ manic acuity a/w noncompliance with meds/ begin trial of Risperdal M tabs 3 mg bid, continue other meds as ordered, care plan strategies d/w Nursing post session 12/28/16 DAY UPDATE/EXAM: Nursing reports pt slept well, observably calmer and slightly more organized in thought process; is c/w new regimen a/w Risperdal M tabs 3 mg bid/ on direct exam pt does present as calmer, with more integrated thought process; still expresses odd ideation which reflects borderline intelligence, includes paranoid elements, is tangential and distractible; is more accepting of DC back to family home in [place]; did well in speaker phone contact with [facility] about parents driving him back to [place] sometime next week contingent on sufficient progress. Mother expressed need for pt to engage in psychiatric treatment in the co- mmunity to which pt agreed. ASSESSMENT/PLAN: less regressed behaviorally and less psychotic residual, more affective stability on exam today/ no change in meds and management plan as d/w Nursing in Rounds 12/29/16 11:45 DAY UPDATE/EXAM: Nursing reports pt continues to recompensate - slept well, more organized thought process, c/w cares and meds, improving social ego functions/ on direct exam is calm, cooperative, conversant; very concrete with bizarre ideation which reflects compromised IQ and some residual psychosis; mood mildly elevated ASSESSMENT/PLAN: descriptive improvement continues/ no change in meds but will increase Depakote in AM; contact with mother pending to set timetable for DC next week contingent on continued stabilization 12/30/16 14:46 DAY UPDATE/EXAM: Pt tried to elope from unit late second shift yesterday by running thru a magnetized emergency exit door; was retrieved by Nursing staff and security and brought back to the unit and placed in seclusion; pt did scuffle briefly with security when engaged outside but cooperated then with being brought back and did not physically struggle again; he complied with meds and stayed in control in the SR thru his release this AM after I saw him with Nursing staff; has remained calm and compliant with care and meds today and states he will remain in control; the trigger for pt's elopement was a paranoid response to his RN who briefly misinterpreted his Ativan order but then corrected himself but pt unable to hear clearly and reacted with PI and then eloped./ on direct exam pt was calm, conversant, relatively organized and able to rehash the reality of what happened yesterday; he also did well with mother in speaker phone contact which focus on DC planning with DC date set for next Monday after father drives up to drive pt over 2 days to return to family home and followup outpt rx; pt understand and accepting this disposition - essentially picking up his inpt rx plan after the interruption of the elopement and SR episode. ASSESSMENT/PLAN: regressive episode as referenced with pt reintegrating to improved level to work thru remainder of inpt course with DC date of 01/06/ will increase DK dosing to 1000 mg qd, no other meds changes, management plan d/w Nursing in Rounds 01/02/17 14:00 DAY ' UPDATE/EXAM: Nursing reports that pt remained in control over weekend, c/w cares and meds; thought process observable by covering psychiatrist as concrete , disjointed, bizarre with paranoid elements and ARLYN/ on direct exam pt is calm , cooperative, conversant; preoccupied with c/o dysphagia; during session spoke with [facility] who reports that pt has had h/o GERD; she also shared that pt has h/o petit mal variant seizures - becomes inattentive, tremulous in his hands, and paces. Spells can last for few minutes up to 15 - 20 minutes, are controlled with Depakote which pt has not complied with in the past. These seizures are separate from the GM seizures which pt has not had for years; pt understands the discussion and comprehends that Depakote he is now taking will likely prevent these events. Pt responded well to supportive comments from mother. He continues to accept the plan for DC and looks forward to seeing father on ; thought process better organized today. ASSESSMENT/PLAN: improving course sustained with no acting up over past 3 days/ serum DK pending; no change in management plan as d/w Nursing in Rounds; DC online for 01/06; will monitor pt for dysphagia 01/03/17 11:00 DAY ' UPDATE/EXAM: little change in mental status over last 24 hours o/t brief regression in which he didn't take hs DK and postponed serum DK until tomorrow as he's now again complying/ on direct exam is quiet, conversant; states intention to work thru to DC and will c/w meds, cares including the upcoming depot Risperdal injection tomorrow. ASSESSMENT/PLAN: sustaining gains and moving to DC 01/06/ no change in current meds or management plan; will order Risperdal Consta 50 mg IM to be given tomorrow 01/04/17 09:15 DAY ' UPDATE/EXAM: Nursing reports pt remains in behavioral control and somewhat more organized in thought process; is c/w meds and cares and attending groups; not using prn Zyprexa/ on direct exam pt is calm, softer verbal tone and slower pace ; reports + contact with his father who is scheduled to arrive in [place] ; brief speaker phone meeting with pt and mother to discuss DC plans and obtained PCP telephone number; reviewed meds and pt accepting his Consta injection later today. ASSESSMENT/PLAN: building on descriptive gains as he works thru DC planning phase with DC on line 01/06/ will get Risperdal Consta injection today of 50 mg; no change in management plan or oral meds regimen 01/05/17 DAY ' UPDATE/EXAM: Objective: Vital Signs Temp Pulse Resp BP Pulse Ox 36.3 C 107 H 16 134/88 H 97 01/05/17 06:36 01/05/17 06:36 01/05/17 06:36 01/05/17 06:36 01/05/17 06:36 ICD10 Worksheet Patient Problems: Problems Problem Status Onset Acute psychosis Acute
[2017-01-05] MEDS: LORazepam 0.5 MG TAB PO SCH ×3 (09:19→20:16)
[2017-01-05] MEDS: BENZTROPINE MESYLATE 1 MG TAB PO SCH ×2 (09:19→20:10)
[2017-01-05] MEDS: RISPERIDONE 1 MG ODT TAB SL SCH ×2 (09:20→20:10)
[2017-01-05] MEDS: DIVALPROEX ER 500 MG TAB PO SCH (09:20)
[2017-01-05] MEDS: NICOTINE 21 MG/24 HR PATCH TD SCH ×2 (10:44→16:41)
[2017-01-05] MEDS ORDERED: risperiDONE MICROSPHERES 50 MG/2 ML SYR IM ONE (11:00)
[2017-01-05] MEDS ORDERED: LORazepam 0.5 MG TAB PO ONE (13:24)
--- NOTE | 2017-01-05 15:18 | SOAPPROG ---
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 ASSESSMENT/PLAN: early phase evidence that pt is recompensating and cooperative in engaging Care Plan/ no change in current meds or management plan 12/20/16 13:30 DAY ' UPDATE/EXAM: Nursing reports slept 11 hr, observed as drowsy and more time in bed; PI and POS noted on MSE by nursing and CC earlier today/ on direct exam pt is drowsy and in bed; thought process unchanged with residual PI and impoverishment; discussed meds changes a/w decrease of Ativan and increase of Abilify which pt is accepting; also again he gives me permission to reach [facility] for expanding data base and explore options at [place] ASSESSMENT/PLAN: residual psychotic acuity; probable Ativan-induced sedation/ decrease Ativan to 0.5 mg tid and Vistaril prn; increase Abilify to 10 mg bid; Care plan discussed with Nursing - mobilize OOR and promote socialization 12/21/16 DAY UPDATE/EXAM: Nursing reports pt slept 10 hours, less drowsy and OOR into milieu this AM; interacting socially with selective pts and attending to self-care, c/ w meds and cares; on direct exam evidences residual persecutory delusions about water but less guarded and less pressured speech; again gives permission for me to speak to mother and generally responsive to reintegrative support during session. ASSESSMENT/PLAN: early phase progress in recompensating/ no change in meds or management plan as discussed in Rounds 12/22/16 11:30 DAY UPDATE/EXAM: Nursing reorts pt continues to sleep well, c/w cares and meds, gradually more visible in milieu and attending selective groups/ on direct exam pt evidences improving signs a/w less POS and slowed mentation, improving reality-testing capacity, improving capacity for conversant mode; residual manic elements remains as does IOR and PI. INTAKE/MOC: she reports that mood instability with preponderant manic episodes began in childhood and have continued to the present; assessed as disabled at age 18 with disabilities defined as GM epilepsy, mild mental retardation/ learning disabled, and Autistic Spectrum Disorder - no mention of primary Mood Disorder. In recent years and particularly over the last year [facility] has seen psychotic sx emerge including PI, persecutory delusions, AH/VH; psychotic crises leading to this admission is the most acutely psychotic MOC has seen her son. She states she and pt's father want him to return to [place], again live with family, and engage treatment in the community. ASSESSMENT/PLAN: residual manic/psychotic elements on exam which are improving; hx suggests SAD - Bipolar Type a/w other diagnoses as referenced/ no change in current meds or management as d/w Nursing in Rounds 12/26/16 11:36 DAY ' UPDATE/EXAM: Nursing reports over past 3 days pt has continued to evidence residual psychotic/manic elements with extremely disjointed thought process at times; has refused several doses of Abilify as he's c/o "restless legs which also feel like lead"; this AM pt states he took an Ativan and Abilify tablet he' d cheeked and saved in the interest of checking out his response to see if his legs still bothered him after he'd agreed to take a depot shot Abillify in speaking with me earlier; on f/u contact pt described the apparent side effect of akathisia he'd felt with previous compliance with Abilify; he agreed to try Cogentin 1 mg bid, continue the Abilify 10 mg bid and hold off on the depot injection of Abilify for 48 hours to assess his tolerance for the Abilify; He also agreed to take a loading trial of Depakote which he now says he's taken remotely which worked "to make me mellow" but was also sedating. ASSESSMENT/PLAN: residual psychotic/manic sx but improved partially on Abilify currently dosed at 10 mg bid; akathisia side-effect/ will prescribe Cogentin 1 mg bid and begin Depakote ER 250 mg bid and observe mental status; continue current CP as d/w Nursing in Rounds; monitor meds compliance 12/27/16 14:20 DAY UPDATE/EXAM: Nursing reports pt has been more regressed in last 24 hours, intermittently agitated, cheeking meds; continuing to complain about Abilify causing LE side-effects; this aM he has tried to elope X 1 and ripped a railing off a bannister on the unit but clamed with limits applied/ on direct exam pt engaged and cooperated after limits again applied by me in session about need for control and compliance with cares and meds; he is unable to understand the trial of Abillify and Cogentin so I decided to Dc Abilify and begin Risperdal M TABS 3 mg bid which pt agrees to take with first dosing while still in my office ; other meds unchanged; pt + about speaker phone meeting with [facility] tomorrow. ASSESSMENT/PLAN: increased agitation, regressed behaviors, residual psychotic/ manic acuity a/w noncompliance with meds/ begin trial of Risperdal M tabs 3 mg bid, continue other meds as ordered, care plan strategies d/w Nursing post session 12/28/16 DAY UPDATE/EXAM: Nursing reports pt slept well, observably calmer and slightly more organized in thought process; is c/w new regimen a/w Risperdal M tabs 3 mg bid/ on direct exam pt does present as calmer, with more integrated thought process; still expresses odd ideation which reflects borderline intelligence, includes paranoid elements, is tangential and distractible; is more accepting of DC back to family home in [place]; did well in speaker phone contact with [facility] about parents driving him back to [place] sometime next week contingent on sufficient progress. Mother expressed need for pt to engage in psychiatric treatment in the co- [place]munity to which pt agreed. ASSESSMENT/PLAN: less regressed behaviorally and less psychotic residual, more affective stability on exam today/ no change in meds and management plan as d/w Nursing in Rounds 12/29/16 11:45 DAY UPDATE/EXAM: Nursing reports pt continues to recompensate - slept well, more organized thought process, c/w cares and meds, improving social ego functions/ on direct exam is calm, cooperative, conversant; very concrete with bizarre ideation which reflects compromised IQ and some residual psychosis; mood mildly elevated ASSESSMENT/PLAN: descriptive improvement continues/ no change in meds but will increase Depakote in AM; contact with mother pending to set timetable for DC next week contingent on continued stabilization 12/30/16 14:46 DAY UPDATE/EXAM: Pt tried to elope from unit late second shift yesterday by running thru a magnetized emergency exit door; was retrieved by Nursing staff and security and brought back to the unit and placed in seclusion; pt did scuffle briefly with security when engaged outside but cooperated then with being brought back and did not physically struggle again; he complied with meds and stayed in control in the SR thru his release this AM after I saw him with Nursing staff; has remained calm and compliant with care and meds today and states he will remain in control; the trigger for pt's elopement was a paranoid response to his RN who briefly misinterpreted his Ativan order but then corrected himself but pt unable to hear clearly and reacted with PI and then eloped./ on direct exam pt was calm, conversant, relatively organized and able to rehash the reality of what happened yesterday; he also did well with mother in speaker phone contact which focus on DC planning with DC date set for next Monday after father drives up to drive pt over 2 days to return to family home and followup outpt rx; pt understand and accepting this disposition - essentially picking up his inpt rx plan after the interruption of the elopement and SR episode. ASSESSMENT/PLAN: regressive episode as referenced with pt reintegrating to improved level to work thru remainder of inpt course with DC date of 01/06/ will increase DK dosing to 1000 mg qd, no other meds changes, management plan d/w Nursing in Rounds 01/02/17 14:00 DAY ' UPDATE/EXAM: Nursing reports that pt remained in control over weekend, c/w cares and meds; thought process observable by covering psychiatrist as concrete , disjointed, bizarre with paranoid elements and ARLYN/ on direct exam pt is calm , cooperative, conversant; preoccupied with c/o dysphagia; during session spoke with [facility] who reports that pt has had h/o GERD; she also shared that pt has h/o petit mal variant seizures - becomes inattentive, tremulous in his hands, and paces. Spells can last for few minutes up to 15 - 20 minutes, are controlled with Depakote which pt has not complied with in the past. These seizures are separate from the GM seizures which pt has not had for years; pt understands the discussion and comprehends that Depakote he is now taking will likely prevent these events. Pt responded well to supportive comments from mother. He continues to accept the plan for DC and looks forward to seeing father on ; thought process better organized today. ASSESSMENT/PLAN: improving course sustained with no acting up over past 3 days/ serum DK pending; no change in management plan as d/w Nursing in Rounds; DC online for 01/06; will monitor pt for dysphagia 01/03/17 11:00 DAY ' UPDATE/EXAM: little change in mental status over last 24 hours o/t brief regression in which he didn't take hs DK and postponed serum DK until tomorrow as he's now again complying/ on direct exam is quiet, conversant; states intention to work thru to DC and will c/w meds, cares including the upcoming depot Risperdal injection tomorrow. ASSESSMENT/PLAN: sustaining gains and moving to DC 01/06/ no change in current meds or management plan; will order Risperdal Consta 50 mg IM to be given tomorrow 01/04/17 09:15 DAY ' UPDATE/EXAM: Nursing reports pt remains in behavioral control and somewhat more organized in thought process; is c/w meds and cares and attending groups; not using prn Zyprexa/ on direct exam pt is calm, softer verbal tone and slower pace ; reports + contact with his father who is scheduled to arrive in [place] ; brief speaker phone meeting with pt and mother to discuss DC plans and obtained PCP telephone number; reviewed meds and pt accepting his Consta injection later today. ASSESSMENT/PLAN: building on descriptive gains as he works thru DC planning phase with DC on line 01/06/ will get Risperdal Consta injection today of 50 mg; no change in management plan or oral meds regimen 01/05/17 DAY ' UPDATE/EXAM: Nursing reports observable progress in improving though organization, better affrective modulation, increase conversant capacity interactvely; good compliance with med/ on direct exam continues to evidence camer and better organized thought process; contnues to be concerned about side- effects to Risperdal M but does state not using prn Zyprexa has help his c/o increased anxiety; reminded that obervably he's improving as reported by Team; with extended support/clarification pt agrees and did receive his Consta injection today. ASSESSMENT/PLAN: improving course sustained; dK level subtherapeutic at 24.7/ Depakote increased from 1000 to 1500 mg qd; Pisperdal Constat 50 mg IM administered; no change in management plan; DC remians online for tomorrow AM after family meeting Objective: Vital Signs Temp Pulse Resp BP Pulse Ox 36.3 C 107 H 16 134/88 H 97 01/05/17 06:36 01/05/17 06:36 01/05/17 06:36 01/05/17 06:36 01/05/17 06:36 ICD10 Worksheet Patient Problems: Problems Problem Status Onset Acute psychosis Acute
[2017-01-05] MEDS: NICOTINE POLACRILEX 2 MG GUM B PRN (17:19)
[2017-01-05] MEDS ORDERED: DIVALPROEX ER 500 MG TAB PO SCH (21:00)
[2017-01-06] MEDS: hydrOXYzine HCL 50 MG TAB PO PRN (05:33)
[2017-01-06 06:26] VITALS: BP 113/77; PULSE 113; RESP 18; TEMP 97.6; O2SAT 96
--- NOTE | 2017-01-06 06:52 | SOAPPROG ---
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 ASSESSMENT/PLAN: early phase evidence that pt is recompensating and cooperative in engaging Care Plan/ no change in current meds or management plan 12/20/16 13:30 DAY ' UPDATE/EXAM: Nursing reports slept 11 hr, observed as drowsy and more time in bed; PI and POS noted on MSE by nursing and CC earlier today/ on direct exam pt is drowsy and in bed; thought process unchanged with residual PI and impoverishment; discussed meds changes a/w decrease of Ativan and increase of Abilify which pt is accepting; also again he gives me permission to reach [facility] for expanding data base and explore options at [place] ASSESSMENT/PLAN: residual psychotic acuity; probable Ativan-induced sedation/ decrease Ativan to 0.5 mg tid and Vistaril prn; increase Abilify to 10 mg bid; Care plan discussed with Nursing - mobilize OOR and promote socialization 12/21/16 DAY UPDATE/EXAM: Nursing reports pt slept 10 hours, less drowsy and OOR into milieu this AM; interacting socially with selective pts and attending to self-care, c/ w meds and cares; on direct exam evidences residual persecutory delusions about water but less guarded and less pressured speech; again gives permission for me to speak to mother and generally responsive to reintegrative support during session. ASSESSMENT/PLAN: early phase progress in recompensating/ no change in meds or management plan as discussed in Rounds 12/22/16 11:30 DAY UPDATE/EXAM: Nursing reorts pt continues to sleep well, c/w cares and meds, gradually more visible in milieu and attending selective groups/ on direct exam pt evidences improving signs a/w less POS and slowed mentation, improving reality-testing capacity, improving capacity for conversant mode; residual manic elements remains as does IOR and PI. INTAKE/MOC: she reports that mood instability with preponderant manic episodes began in childhood and have continued to the present; assessed as disabled at age 18 with disabilities defined as GM epilepsy, mild mental retardation/ learning disabled, and Autistic Spectrum Disorder - no mention of primary Mood Disorder. In recent years and particularly over the last year [facility] has seen psychotic sx emerge including PI, persecutory delusions, AH/VH; psychotic crises leading to this admission is the most acutely psychotic MOC has seen her son. She states she and pt's father want him to return to [place], again live with family, and engage treatment in the community. ASSESSMENT/PLAN: residual manic/psychotic elements on exam which are improving; hx suggests SAD - Bipolar Type a/w other diagnoses as referenced/ no change in current meds or management as d/w Nursing in Rounds 12/26/16 11:36 DAY ' UPDATE/EXAM: Nursing reports over past 3 days pt has continued to evidence residual psychotic/manic elements with extremely disjointed thought process at times; has refused several doses of Abilify as he's c/o "restless legs which also feel like lead"; this AM pt states he took an Ativan and Abilify tablet he' d cheeked and saved in the interest of checking out his response to see if his legs still bothered him after he'd agreed to take a depot shot Abillify in speaking with me earlier; on f/u contact pt described the apparent side effect of akathisia he'd felt with previous compliance with Abilify; he agreed to try Cogentin 1 mg bid, continue the Abilify 10 mg bid and hold off on the depot injection of Abilify for 48 hours to assess his tolerance for the Abilify; He also agreed to take a loading trial of Depakote which he now says he's taken remotely which worked "to make me mellow" but was also sedating. ASSESSMENT/PLAN: residual psychotic/manic sx but improved partially on Abilify currently dosed at 10 mg bid; akathisia side-effect/ will prescribe Cogentin 1 mg bid and begin Depakote ER 250 mg bid and observe mental status; continue current CP as d/w Nursing in Rounds; monitor meds compliance 12/27/16 14:20 DAY UPDATE/EXAM: Nursing reports pt has been more regressed in last 24 hours, intermittently agitated, cheeking meds; continuing to complain about Abilify causing LE side-effects; this aM he has tried to elope X 1 and ripped a railing off a bannister on the unit but clamed with limits applied/ on direct exam pt engaged and cooperated after limits again applied by me in session about need for control and compliance with cares and meds; he is unable to understand the trial of Abillify and Cogentin so I decided to Dc Abilify and begin Risperdal M TABS 3 mg bid which pt agrees to take with first dosing while still in my office ; other meds unchanged; pt + about speaker phone meeting with [facility] tomorrow. ASSESSMENT/PLAN: increased agitation, regressed behaviors, residual psychotic/ manic acuity a/w noncompliance with meds/ begin trial of Risperdal M tabs 3 mg bid, continue other meds as ordered, care plan strategies d/w Nursing post session 12/28/16 DAY UPDATE/EXAM: Nursing reports pt slept well, observably calmer and slightly more organized in thought process; is c/w new regimen a/w Risperdal M tabs 3 mg bid/ on direct exam pt does present as calmer, with more integrated thought process; still expresses odd ideation which reflects borderline intelligence, includes paranoid elements, is tangential and distractible; is more accepting of DC back to family home in [place]; did well in speaker phone contact with [facility] about parents driving him back to [place] sometime next week contingent on sufficient progress. Mother expressed need for pt to engage in psychiatric treatment in the co- mmunity to which pt agreed. ASSESSMENT/PLAN: less regressed behaviorally and less psychotic residual, more affective stability on exam today/ no change in meds and management plan as d/w Nursing in Rounds 12/29/16 11:45 DAY UPDATE/EXAM: Nursing reports pt continues to recompensate - slept well, more organized thought process, c/w cares and meds, improving social ego functions/ on direct exam is calm, cooperative, conversant; very concrete with bizarre ideation which reflects compromised IQ and some residual psychosis; mood mildly elevated ASSESSMENT/PLAN: descriptive improvement continues/ no change in meds but will increase Depakote in AM; contact with mother pending to set timetable for DC next week contingent on continued stabilization 12/30/16 14:46 DAY UPDATE/EXAM: Pt tried to elope from unit late second shift yesterday by running thru a magnetized emergency exit door; was retrieved by Nursing staff and security and brought back to the unit and placed in seclusion; pt did scuffle briefly with security when engaged outside but cooperated then with being brought back and did not physically struggle again; he complied with meds and stayed in control in the SR thru his release this AM after I saw him with Nursing staff; has remained calm and compliant with care and meds today and states he will remain in control; the trigger for pt's elopement was a paranoid response to his RN who briefly misinterpreted his Ativan order but then corrected himself but pt unable to hear clearly and reacted with PI and then eloped./ on direct exam pt was calm, conversant, relatively organized and able to rehash the reality of what happened yesterday; he also did well with mother in speaker phone contact which focus on DC planning with DC date set for next Monday after father drives up to drive pt over 2 days to return to family home and followup outpt rx; pt understand and accepting this disposition - essentially picking up his inpt rx plan after the interruption of the elopement and SR episode. ASSESSMENT/PLAN: regressive episode as referenced with pt reintegrating to improved level to work thru remainder of inpt course with DC date of 01/06/ will increase DK dosing to 1000 mg qd, no other meds changes, management plan d/w Nursing in Rounds 01/02/17 14:00 DAY ' UPDATE/EXAM: Nursing reports that pt remained in control over weekend, c/w cares and meds; thought process observable by covering psychiatrist as concrete , disjointed, bizarre with paranoid elements and ARLYN/ on direct exam pt is calm , cooperative, conversant; preoccupied with c/o dysphagia; during session spoke with [facility] who reports that pt has had h/o GERD; she also shared that pt has h/o petit mal variant seizures - becomes inattentive, tremulous in his hands, and paces. Spells can last for few minutes up to 15 - 20 minutes, are controlled with Depakote which pt has not complied with in the past. These seizures are separate from the GM seizures which pt has not had for years; pt understands the discussion and comprehends that Depakote he is now taking will likely prevent these events. Pt responded well to supportive comments from mother. He continues to accept the plan for DC and looks forward to seeing father on ; thought process better organized today. ASSESSMENT/PLAN: improving course sustained with no acting up over past 3 days/ serum DK pending; no change in management plan as d/w Nursing in Rounds; DC online for 01/06; will monitor pt for dysphagia 01/03/17 11:00 DAY ' UPDATE/EXAM: little change in mental status over last 24 hours o/t brief regression in which he didn't take hs DK and postponed serum DK until tomorrow as he's now again complying/ on direct exam is quiet, conversant; states intention to work thru to DC and will c/w meds, cares including the upcoming depot Risperdal injection tomorrow. ASSESSMENT/PLAN: sustaining gains and moving to DC 01/06/ no change in current meds or management plan; will order Risperdal Consta 50 mg IM to be given tomorrow 01/04/17 09:15 DAY ' UPDATE/EXAM: Nursing reports pt remains in behavioral control and somewhat more organized in thought process; is c/w meds and cares and attending groups; not using prn Zyprexa/ on direct exam pt is calm, softer verbal tone and slower pace ; reports + contact with his father who is scheduled to arrive in [place] ; brief speaker phone meeting with pt and mother to discuss DC plans and obtained PCP telephone number; reviewed meds and pt accepting his Consta injection later today. ASSESSMENT/PLAN: building on descriptive gains as he works thru DC planning phase with DC on line 01/06/ will get Risperdal Consta injection today of 50 mg; no change in management plan or oral meds regimen 01/05/17 DAY ' UPDATE/EXAM: Nursing reports observable progress in improving though organization, better affective modulation, increase conversant capacity interactively; good compliance with meds/ on direct exam continues to evidence calmer and better organized thought process; continues to be concerned about side-effects to Risperdal M but does state not using prn Zyprexa has help his c/ o increased anxiety; reminded that observably he's improving as reported by Team ; with extended support/clarification pt agrees and did receive his Consta injection today. ASSESSMENT/PLAN: improving course sustained; DK level subtherapeutic at 24.7/ Depakote increased from 1000 to 1500 mg qd; Risperdal Consta 50 mg IM administered; no change in management plan; DC remains online for tomorrow AM after family meeting 01/06/17 Discharge Note DAY ' UPDATE/EXAM: Objective: Vital Signs Temp Pulse Resp BP Pulse Ox 36.4 C 113 H 18 113/77 96 01/06/17 06:25 01/06/17 06:25 01/06/17 06:25 01/06/17 06:25 01/06/17 06:25 ICD10 Worksheet Patient Problems: Problems Problem Status Onset Acute psychosis Acute
[2017-01-06] MEDS: DIVALPROEX ER 500 MG TAB PO SCH (07:48)
[2017-01-06] MEDS: LORazepam 0.5 MG TAB PO SCH (07:49)
[2017-01-06] MEDS: BENZTROPINE MESYLATE 1 MG TAB PO SCH (07:49)
[2017-01-06] MEDS ORDERED: RISPERIDONE 2 MG ODT TAB SL SCH (21:00)
== END 2017-01-06 09:23 | disposition home or self-care (01) | DRG 885 ==
LOC: BBEH 12-18 03:00
PROVIDERS: ADMIT Psychiatry & Neurology Psychiatry; ATTEND Psychiatry & Neurology Psychiatry
DX: F29 Unspecified psychosis not due to a substance or known physiological condition (principal); Z72.0 Tobacco use; F84.0 Autistic disorder; F98.8 Other specified behavioral and emotional disorders with onset usually occurring in childhood and adolescence; F81.9 Developmental disorder of scholastic skills, unspecified
CPT/HCPCS: 80305; G0480; J2060; J2794